=== PATIENT | female | born 2005 | race Caucasian/White ===

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

== ENCOUNTER 2025-02-19 14:17 | Emergency (ER) | payer OTHER, SELFPAY ==
--- NOTE | ~2025-02-19 | US_ITS ---
CLINICAL HISTORY: Upper abdominal pain. Cholecystitis? US abdomen limited Comparison: None provided Findings: The common duct is 3 mm in diameter. The gallbladder is decompressed limiting evaluation. No definite gallstone visualized. No ascites. IMPRESSION: 1. Contracted gallbladder with normal common bile duct. No definite gallstone identified. This document has been electronically signed by: Marcia Li MD on 02/19/2025 20:29:58
--- NOTE | ~2025-02-19 | XR_ITS ---
CLINICAL HISTORY: pain 1 view abdomen Comparison: None provided Findings: No pneumoperitoneum or pneumatosis. No abnormal calcifications. No acute fractures. IMPRESSION: The bowel gas pattern is within normal limits This document has been electronically signed by: Marcia Li MD on 02/19/2025 21:51:28
[2025-02-19 14:44] VITALS: BP 152/99; PULSE 73; RESP 18; TEMP 37; O2SAT 100; BMI 32.1
--- NOTE | 2025-02-19 14:55 | ED_ITS ---
HPI - General Adult General Chief complaint: Abdominal Pain Stated complaint: upper abd pain, vomiting, headache Time Seen by Provider: 02/19/25 21:04 Source: patient Limitations: no limitations History of Present Illness ED Provider: Madelin Samayoa PA-C HPI narrative: 19F with PMHx of obesity, PCOS presents to the ED for evaluation of epigastric pain and headache. Of note patient is on Zepbound 7.5, last dose was yesterday, has lost 55 pounds since November. She states her epigastric pain started last week with associated N/V. Has not gone away just intensifies, worst in the morning. Yesterday while at work she reports N/V, diaphoresis, subjective fever, chills. Denies urinary symptoms. Diarrhea for the last 4 days, fluctuates between diarrhea/constipation with constipation predominance. Headache began yesterday and patient reports it radiates to her neck. Reports recent URI 3 weeks ago, was prescribed amoxicillin. Related Data Previous Rx's ?Medication ?Instructions ?Recorded cefpodoxime 200 mg tablet 200 mg PO BID #20 tabs 12/14 metoclopramide HCl 10 mg tablet 10 mg PO Q6H PRN nause a and 02/19/25 (Reglan) vomiting #12 tabs sucralfate 1 gram tablet (Carafate) 1 g PO BID PRN ind igestion #10 tabs 02/19/25 Allergies Allergy/AdvReac Type Severity Reaction Status Date / Time No Known Allergies Allergy Verified 02/19/25 14:47 Review of Systems 2 Review of Systems: Yes all other systems are reviewed and are negative Constitutional: Constitutional: Reports headache(s) and Reports weight loss ENT: Reports headache(s) Cardiovascular: Cardiovascular: Denies chest pain and Denies dyspnea Respiratory: Respiratory: Denies dyspnea Gastrointestinal: Gastrointestinal: Reports abdominal pain, Reports diarrhea and Reports nausea Genitourinary: Genitourinary: Reports no additional female genitourinary complaints, Reports amenorrhea, Denies dysuria and Denies flank pain Neurologic: Reports headache(s) [facility] Past Medical History Attestation statement: The following information was validated with the patient. Medical History Anxiety Palpitations Secondary amenorrhea BMI (body mass index), pediatric, greater than 99% for age High blood pressure Family History Family History Mother Chronic anxiety Social History Social History Household Members Other:: mother, father Alcohol intake: never Patient Tobacco Use Status: Never used Tobacco Smoked in Last 30 Days: No Use of substances other than those prescribed or required for medical reasons: No Advance Directives: No Advance Directives Information Provided: No Patient : No Sexual orientation: Straight/Heterosexual Physical Exam ED Vital Signs: Vital Signs - 24 hr 02/19/25 14:44 02/19/25 21:05 02/19/25 22:46 Temperature 98.6 F 98.2 F 98.0 F Pulse Rate 73 76 67 Respiratory Rate 18 17 16 Blood Pressure 152/99 H 142/80 H 126/82 Pulse Oximetry 100 100 98 Oxygen Delivery Method Room Air Room Air Room Air 02/19/25 23:03 Temperature 98.0 F Pulse Rate 67 Respiratory Rate 16 Blood Pressure 126/82 Pulse Oximetry 98 Oxygen Delivery Method Room Air BMI result Body Mass Index 32.1 Const General: cooperative, no acute distress, alert and awake Nutritional Appearance: obese Orientation/consciousness: patient oriented x3 Resp Effort & Inspection: normal respiratory effort Auscultation: clear to auscultation bilaterally Cardio Other: Normal peripheral perfusion Rate: regular rate Rhythm: regular rhythm GI Other: Abdomen is soft, obese, nontender no guarding General: Yes no CVA tenderness Back/Spine/Pelvis Back: no CVA tenderness Skin Other: Warm dry no rash Neuro General: patient oriented x3, gait normal, no focal motor deficits and CN's II- XI intact bilaterally Psych Other: cooperative Course Course Course Narrative: RME: 19 yold female on Josh-Bound presents to the ED. Patient did not states upper bilateral abdominal pain radiating to the back. Patient denies any diarrhea. Labs ordered Reevaluation(s) Reevaluation #1: Michelle Samayoa PA-C personally performed the history, physical and assessment of the patient. Sarah RODGERS helped to formulate the documentation Medications Administered Discontinued Medications Generic Name Dose Route Start Last Admin Trade Name Freq PRN Reason Stop Dose Admin Ondansetron HCl 4 mg 02/19/25 21:08 02/19/25 21:16 Ondansetron Odt 4 Mg Tab.Malcom HINOJOSAINGU 02/19/25 21:09 4 mg ONCE ONE Administration Sucralfate 1 gm 02/19/25 21:08 02/19/25 21:16 Sucralfate Oral Suspension 1 Gm/10 Ml Oral.Susp PO 02/19/25 21:09 1 gm ONCE ONE Administration Medical Decision Making Medical Decision Making MDM Narrative: 19F with PMHx of obesity, PCOS presents to the ED for evaluation of epigastric pain and headache. Of note patient is on Zepbound 7.5, last dose was yesterday, has lost 55 pounds since November. She states her epigastric pain started last week with associated N/V. Has not gone away just intensifies, worst in the morning. Yesterday while at work she reports N/V, diaphoresis, subjective fever, chills. Denies urinary symptoms. Diarrhea for the last 4 days, fluctuates between diarrhea/constipation with constipation predominance. Headache began yesterday and patient reports it radiates to her neck. Reports recent URI 3 weeks ago, was prescribed amoxicillin. The following diagnoses were considered: cholecystitis/choledocolithiasis, pancreatitis, bowel obstruction, nephrolithiasis, peptic ulcer disease, appendicitis, ectopic . Patient afebrile, normal white count. Gastroparesis/constipation likely in the setting of GLP-1 therapy. RUQ US wnl. Lipase wnl. No bowel obstruction visualized on KUB. Clinical presentation not consistent with nephrolithiasis, appendicitis, PUD. Patient denies hematochezia/melena. HCG wnl. Labs: No leukocytosis, not anemic, no electrolyte abnormality, LFTs normal, not , urine not infected Ultrasound right upper quadrant:he common duct is 3 mm in diameter. The gallbladder is decompressed limiting evaluation. No definite gallstone visualized. No ascites. IMPRESSION: 1. Contracted gallbladder with normal common bile duct. No definite gallstone identified. KUB:Findings: No pneumoperitoneum or pneumatosis. No abnormal calcifications. No acute fractures. IMPRESSION: The bowel gas pattern is within normal limits I physically looked at the imaging, the patient does have some degree of stool burden Differential Diagnosis Differential Diagnoses: The differential diagnosis associated with the presentation includes See medical decision-making Admission/Observation Consideration of admission/observation: Escalation of care including admission/observation considered Not applicable Lab Data MDM Lab Attestation statement: I reviewed the patient's lab results. 02/19/25 14:58 02/19/25 14:58 Labs: Lab Results 02/19/25 02/19/25 Range/Units 14:58 18:31 WBC 9.1 (4.8-10.8) X10*3/uL RBC 4.90 (4.20-5.50) X10*6/uL Hgb 13.6 (12.0-16.0) g/dl Hct 42.4 (37.0-47.0) % MCV 86.5 (80.0-98.0) fL MCH 27.8 (27.0-33.0) pg MCHC 32.1 (31.0-35.0) g/dl RDW 13.8 (11.0-16.0) % Plt Count 273 (160-400) X10*3/uL MPV 10.9 (9.4-12.3) fL Immature Gran % (Auto) 0.3 (0.0-0.4) % Neut % (Auto) 61.7 (45-73) % Lymph % (Auto) 27.6 (20-40) % [place] % (Auto) 7.6 (2-11) % Eos % (Auto) 2.1 (0-4) % Baso % (Auto) 0.7 (0-2) % Lymph # (Auto) 2.5 (1.2-4.9) X10*3/uL [place] # (Auto) 0.7 (0.1-1.2) X10*3/uL Eos # (Auto) 0.2 (0.0-0.4) X10*3/uL Baso # (Auto) 0.1 (0.0-0.2) X10*3/uL Abs Immat Gran (auto) 0.03 (0.00-0.03) X10*3/uL Absolute Neuts (auto) 5.6 (2.0-8.3) x10*3/uL Absolute Nucleated RBC 0.000 (0.0-0.012) X10*3/uL Nucleated RBC % (auto) 0.0 (0.0-0.2) /100WBC Sodium 143 (135-145) mmol/L Potassium 3.6 (3.3-5.1) mmol/L Chloride 105 (96-108) mmol/L Carbon Dioxide 30 H (22-29) mmol/L Anion Gap 12 (12-20) BUN 6 L (9-16) mg/dL Creatinine 0.76 (0.5-1.4) mg/dL Estim Creat Clear Calc 134.7 Estimated GFR > 60 Random Glucose 84 (60-115) mg/dL Calcium 9.3 (8.4-10.2) mg/dL Magnesium 1.8 (1.6-2.6) mg/dL Total Bilirubin 0.4 (0.0-1.0) mg/dL AST 28 (5-31) U/L ALT 48 H (0-31) U/L Alkaline Phosphatase 52 (39-117) U/L Total Protein 7.6 (6.5-8.0) g/dL Albumin 4.9 (3.5-5.0) g/dL Amylase 43 (28-100) U/L Lipase 22 (8-78) U/L Beta HCG, Quant < 2 mIU/mL Urine Color Dark Yellow Urine Appearance Clear Urine pH 5.5 (5.0-9.0) Ur Specific [place] >= 1.030 H (1.005-1.025) Urine Protein 30 (1+) H (Neg-Trace) mg/dL Urine Glucose (UA) Negative (Negative) mg/dL Urine Ketones Trace (Negative) mg/dL Urine Blood Large (3+) H (Negative) Urine Nitrite Negative (Negative) Ur Leukocyte Esterase Trace H (Negative) Urine RBC >20 H (0-2) /HPF Urine WBC 0-5 (0-5) /HPF Ur Squamous Epith Cells 3-5 (0-2) /HPF Urine Bacteria Trace (None Seen) Hyaline Casts 0-2 (0-2) /LPF Radiology Impression Discussion of test interpretation with radiology: I have reviewed the radiologist's reading. Discharge Plan Discharge Clinical Impression: GERD (gastroesophageal reflux disease), Constipation Patient Disposition: Home, Self-Care Instructions: Constipation (ED), GERD (Gastroesophageal Reflux Disease) (ED), Indigestion (ED) Additional Instructions: All of your screening labs were normal. The ultrasound of your upper abdomen was normal. The x-ray revealed that you are retaining stool. See home care instructions. The weight loss medication that you use is causing your symptoms. Use the Reglan as needed for nausea vomiting Use the Carafate as needed for indigestion For the constipation, use [id number] Colace twice a day, use [id number] MiraLax 2 to 3 times a day, to help maintain regular bowel movements. Once you self regulate, you may be able to decrease the use of the MiraLax, you will have to determine what works for you. Follow up with your primary care provider as needed. Prescriptions: New metoclopramide HCl [Reglan] 10 mg tablet 10 mg PO Q6H PRN (Reason: nausea and vomiting) Qty: 12 0RF sucralfate [Carafate] 1 gram tablet 1 g PO BID PRN (Reason: indigestion) Qty: 10 0RF No Action cefpodoxime 200 mg tablet 200 mg PO BID Qty: 20 0RF Rx Instructions: must administer with a meal/food Stand Alone Forms: Work/School Release Interventions: ED Discharge Assessment Last Done: 02/19/25 23:03 Discharge Date/Time: 02/19/25 23:04 Print Language: Mosotho
[2025-02-19 15:03] LABS: MANUAL DIFF FLAG NO
[2025-02-19 15:04] LABS: Hematocrit 42.4 % (37.0-47.0); Hemoglobin 13.6 g/dl (12.0-16.0); Imm Gran Abs Auto 0.03 X10*3/uL (0.00-0.03); Imm Gran Pct Auto 0.3 % (0.0-0.4); Lymphocytes Absolute Auto 2.5 X10*3/uL (1.2-4.9); Mean Corpuscular HGB Conc 32.1 g/dl (31.0-35.0); Mean Corpuscular Hemoglobin 27.8 pg (27.0-33.0); Mean Corpuscular Volume 86.5 fL (80.0-98.0); NRBC Abs Auto 0.000 X10*3/uL (0.0-0.012); NRBC Pct Auto 0.0 /100WBC (0.0-0.2); Platelet Count 273 X10*3/uL (160-400); Red Blood Count 4.90 X10*6/uL (4.20-5.50); White Blood Count 9.1 X10*3/uL (4.8-10.8)
[2025-02-19 15:30] LABS: Anion Gap 12 (12-20); Aspartate Amino Transferase 28 U/L (5-31); Blood Urea Nitrogen 6 mg/dL (9-16); Calcium 9.3 mg/dL (8.4-10.2); Carbon Dioxide 30 mmol/L (22-29); Chloride 105 mmol/L (96-108); Creatinine Clr Calc Pharmacy 134.7; Estimated Glomerular Filt Rate > 60; Magnesium 1.8 mg/dL (1.6-2.6); Potassium 3.6 mmol/L (3.3-5.1); Sodium 143 mmol/L (135-145); Total Protein 7.6 g/dL (6.5-8.0)
[2025-02-19 15:31] LABS: Albumin Level 4.9 g/dL (3.5-5.0); Alkaline Phosphatase 52 U/L (39-117); Amylase 43 U/L (28-100); Lipase 22 U/L (8-78)
[2025-02-19 15:44] LABS: Alanine Aminotransferase 48 U/L (0-31)
[2025-02-19 18:46] LABS: Appearance Urine Clear; Glucose Urine UA Negative (Negative); PH 5.5 (5.0-9.0); Specific Gravity - Urine >= 1.030 (1.005-1.025); UMIC TRIGGER UACC YES
[2025-02-19 21:05] VITALS: BP 142/80; PULSE 76; RESP 17; TEMP 36.8; O2SAT 100
--- OUTSIDE RECORDS SUMMARY | 2025-02-19 21:05 | XMS_ITS | Encounter Summary ---
Author Organization [facility] Address [address] [place] [address] Care Team Providers Care Ad Compositor Name Role Phone Anisa Mayes MD Primary Care Provider Barbara Ely MD Primary Care Provider [phone] Katerine Le MD Primary Care Provider Reason for Visit * Reason Comments E-prescribe Rx Request Encounter Details Date Type Department Care Team Description 11/30/2020 Refill Pediatrics - [place] [address] [place] [address] [phone] Tati Larsen, [facility] [address] [place], [place] [phone] E-prescribe Rx Request Social History Tobacco Use Types Packs/Day Years Used Date Smoking Tobacco: Never Smokeless Tobacco: Never Comments:mom smokes at work Alcohol Use Standard Drinks/Week Comments No 0 (1 standard drink = 0.6 oz pur e alcohol) Sex Assigned at Date Recorded Not on file Job Start Date Occupation Industry Not on file Not on file Not on file documented as of this encounter Miscellaneous Notes * Telephone Encounter - Tiffanie Bowie - 12/01/2020 12:06 PM EDT When was patients last PE/WCC? 11/03 When is patients next PE/WCC scheduled? Wait listed Anisa J. Sarro RX REQUEST WHEN MED IS ON THE LIST: All of the medications requested were on the CURRENT MEDS list Did you check the Pharmacy information above?: YES Indicate how soon the patient needs the script: YAMILKA Patient would like script to be: send to pharmacy Is the doctor here today?: YES Can the message wait until the doctor returns?: NO Has the patient been told that the prescription will not be filled until the end of the day? NO Anisa Mayes Payor: [employer] FFS / Plan: [employer] / Product Type: MEDICAID RISK documented in this encounter Plan of Treatment Not on file documented as of this encounter Visit Diagnoses Not on filedocumented in this encounter Care Teams Ad Compositor Relationship Specialty Start Date End Date Anisa Mayes MD PCP - General Pediatrics 06/22/19 07/12/21 Barbara Blanchard MD [address] [place] [id number] PCP - General Pediatrics 07/13/21 11/30/23 Katerine Le MD [address] [place] [id number] PCP - General Internal Medicine 12/01/23 documented as of this encounter
--- OUTSIDE RECORDS SUMMARY | 2025-02-19 21:05 | XMS_ITS | Encounter Summary ---
Author Organization [facility] Address [address] [place] [address] Care Team Providers Care Engine Buildup Mechanic Name Role Phone Barbara Blanchard MD Primary Care Provider [phone] Katerine Le MD Primary Care Provider [phone] Reason for Visit * Reason Onset Date Comments refill request 05/03/2022 Encounter Details Date Type Department Care Team Description 05/03/2022 Telephone OBGYN - [address] [id number] Kamron Sykes, [facility] [address] [place] [address] refill request Social History Tobacco Use Types Packs/Day Years Used Date Smoking Tobacco: Never Smokeless Tobacco: Never Alcohol Use Standard Drinks/Week Comments No 0 (1 standard drink = 0.6 oz pur e alcohol) Sex Assigned at Date Recorded Not on file Job Start Date Occupation Industry Not on file Not on file Not on file COVID-19 Exposure Response Date Recorded In the last 10 days, have yo u been in contact with someone who was confirmed or suspected to have Coronavirus/COVID-19? No / Unsure 04/07/2022 3:25 PM EST documented as of this encounter Miscellaneous Notes * Telephone Encounter - Venessa Espinoza - 05/03/2022 2:22 PM EST Patient requedting rx refill for desogestrel-ethinyl estradiol (Apri) 0.15-30 MG-MCG ' to hold heruntil her scheduled BCP follow up on 06/01/22. Please advise documented in this encounter Plan of Treatment Not on file documented as of this encounter Visit Diagnoses Not on filedocumented in this encounter Care Teams Engine Buildup Mechanic Relationship Specialty Start Date End Date Barbara Blanchard MD [address] [place] [id number] PCP - General Pediatrics 07/13/21 11/30/23 Katerine Le MD [address] [place] [id number] PCP - General Internal Medicine 12/01/23 documented as of this encounter
--- OUTSIDE RECORDS SUMMARY | 2025-02-19 21:05 | XMS_ITS | Encounter Summary ---
Author Organization [facility] Address [address] [place] [address] Care Team Providers Care Ice Cream Freezer Helper Name Role Phone Barbara Blanchard MD Primary Care Provider [phone] Katerine Le MD Primary Care Provider [phone] Reason for Visit * Reason Comments E-prescribe Rx Request Encounter Details Date Type Department Care Team Description 06/01/2023 Refill Pediatrics - [address] [address] Barbara Blanchard MD [address] [place] [address] [phone] E-prescribe Rx Request Social History Tobacco Use [...] on filedocumented in this encounter Care Teams Ice Cream Freezer Helper Relationship Specialty Start Date End Date Barbara Blanchard MD [address] [place] [address] [phone] PCP - General Pediatrics 07/13/21 11/30/23 Katerine Le MD [address] [place] [address] PCP - General Internal Medicine 12/01/23 documented as of this encounter
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
--- OUTSIDE RECORDS SUMMARY | 2025-02-19 21:05 | XMS_ITS | Encounter Summary ---
Author Organization [facility] Address [address] [place] [address] Care Team Providers Care Credit Risk Modeler Name Role Phone Jo-Ann Ferrara MD Primary Care Provider Unavailab Horacio Lopez MD Primary Care Provider Anisa Yung MD Primary Care Provider Unavaila Barbara Walton MD Primary Care Provider [phone] Katerine Le MD Primary Care Provider [phone] Encounter Details Date Type Department Care Team Description 01/03/2018 Mobile Plant Operators Report Medical Records [address] [place] [phone] [place] [address] For Social History Tobacco Use Types Packs/Day Years [...] on filedocumented in this encounter Care Teams Credit Risk Modeler Relationship Specialty Start Date End Date Jo-Ann Ferrara MD PCP - General Pediatrics 09/22/17 05/29/19 Horacio Carbajal MD PCP - General Pediatrics 05/30/19 06/21/19 Anisa Mayes MD PCP - General Pediatrics 06/22/19 07/12/21 Barbara Blanchard MD [address] [place] [address] PCP - General Pediatrics 07/13/21 11/30/23 Katerine Le MD [address] [place] [address] PCP - General Internal Medicine 12/01/23 documented as of this encounter
--- OUTSIDE RECORDS SUMMARY | 2025-02-19 21:05 | XMS_ITS | Encounter Summary ---
Author Organization [facility] Address [address] [place] [address] Care Team Providers Care Upper And Bottom Lacer Hand Name Role Phone Peyton Lynn MD Primary Care Provider UnavailJo-Ann Ramirez MD Primary Care Provider UnavailHoracio Comer MD Primary Care Provider Sinaiva Anisa Kidd MD Primary Care Provider Unavaila Barbara [place] MD Primary Care Provider [phone] Katerine Le MD Primary Care Provider [phone] Reason for Visit * Reason Onset Date Comments Rash 12/20/2016 Encounter Details Date Type Department Care Team Description 12/20/2016 Telephone Pediatrics - [address] [address] Lacy Calloway NP Rash Social History Tobacco Use Types Packs/Day Years [...] encounter Miscellaneous Notes * Telephone Encounter - Vidhi Avila L.P.N. - 12/20/2016 4:25 PM EDT [facility] - Telephone Triage Documentation CHIEF COMPLAINT:Spoke to mom, pt has a rash that appears to be little red dots on her neck and sometimes going up the side toward her ear.Very light , comes and goes. Itchy. ? Contact dermititis.Apptmade for tomorrow. PCP: Peyton Lynn LMP/EDC: No current outpatient prescriptions on file. No current facility-administered medications for this visit. Allergies: Review of patient's allergies indicates no known allergies. Patient Active Problem List Diagnosis Code ??? Overweight(278.02) ??? Vision impairment H54.7 ??? Oliva's cyst of knee M71.20 ??? Systolic murmur R01.1 ??? Family circumstance Z63.9 DISPOSITION:Appointment given REFERENCE:Pediatric's Telephone Protocols by Marbin/Kaykay CALLER UNDERSTANDS & AGREES WITH ADVICE:YES * Telephone Encounter - Mady Albert - 12/20/2016 4:08 PM EDT Signs/Symptoms: Pt has a rash on back of neck Duration of symptoms: Past couple of days Temperature: n/a Allergies: Review of patient's allergies indicates no known allergies. Any chronic illnesses: Patient Active Problem List Diagnosis Code ??? Overweight(278.02) ??? Vision impairment H54.7 ??? Oliva's cyst of knee M71.20 ??? Systolic murmur R01.1 ??? Family circumstance Z63.9 Is the child taking any medications: No current outpatient prescriptions on file. No current facility-administered medications for this visit. documented in this encounter Plan of Treatment Not on file documented as of this encounter Visit Diagnoses Not on filedocumented in this encounter Care Teams Upper And Bottom Lacer Hand Relationship Specialty Start Date End Date Peyton Lynn MD PCP - General Pediatrics 04/20/16 09/21/17 Jo-Ann Ferrara MD PCP - General Pediatrics 09/22/17 05/29/19 Horacio Carbajal MD PCP - General Pediatrics 05/30/19 06/21/19 Anisa Mayes MD PCP - General Pediatrics 06/22/19 07/12/21 Barbara Blanchard MD [address] [place] [address] PCP - General Pediatrics 07/13/21 11/30/23 Katerine Le MD [address] [place] [address] PCP - General Internal Medicine 12/01/23 documented as of this encounter
--- OUTSIDE RECORDS SUMMARY | 2025-02-19 21:05 | XMS_ITS | Encounter Summary ---
Author Organization [facility] Address [address] [place] [address] Care Team Providers Care Commercial Announcer Name Role Phone Barbara Blanchard MD Primary Care Provider [phone] Katerine Le MD Primary Care Provider [phone] Encounter Details Date Type Department Care Team Description 10/12/2022 Tempering Machine Operator Report Medical Records [address] [place] [address] Abstract, Provider Social History Tobacco Use Types [...] on filedocumented in this encounter Care Teams Commercial Announcer Relationship Specialty Start Date End Date Barbara Blanchard MD [address] [place] [address] [id number] PCP - General Pediatrics 07/13/21 11/30/23 Katerine Le MD [address] [place] [address] [id number] PCP - General Internal Medicine 12/01/23 documented as of this encounter
--- OUTSIDE RECORDS SUMMARY | 2025-02-19 21:05 | XMS_ITS | Clinical Summary ---
Author Organization [address] Address [address] [place] [phone] Phone Care Team Providers Care Certified Technician Specialist Name Role Phone Katerine Le MD Primary Care Provider [phone] Allergies No known active allergies Medications FLUoxetine (PROzac) 20 mg capsule Take 1 capsule (20 mg total) by mouth 1 (one) time each day in the morning. 4 Active hydrOXYzine HCL (ATARAX) 10 mg tablet Take 1 tablet (10 mg total) by mouth every 6 (six) hours if needed for anxiety. 3 Active tirzepatide, weight loss, (Zepbound) 7.5 mg/0.5 mL injectionIndicat ions:Class 3 severe obesity due to excess calories with body mass index (BMI) of 40.0 to 44.9 in adult, unspecified whether serious comorbidity present (CMS/HCC V24, CMS/HCC V28) Inject 0.5 mL (7.5 mg total) under the skin every 7 (seven) days. 2 mL 5 Active tirzepatide, weight loss, (Zepbound) 7.5 mg/0.5 mL injectionIndicat ions:Class 3 severe obesity due to excess calories with body mass index (BMI) of 40.0 to 44.9 in adult, unspecified whether serious comorbidity present (CMS/HCC V24, CMS/HCC V28) Inject 0.5 mL (7.5 mg total) under the skin every 7 (seven) days. 2 mL 5 02/06/20 25 Discontinu ed(Reorder ) Active Problems Problem Noted Date Diagnosed Date Anxiety and depression 09/05/2024 Class 3 severe obesity due t o excess calories with body mass index (BMI) of 40.0 to 44.9 in adult ([facility] V24, [facility] V28) 09/05/2024 Class 3 severe obesity due t o excess calories with body mass index (BMI) of 40.0 to 44.9 in adult ([facility] V24, 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 consultant 06/28 09/30 - not appreciated 02/01 - [...] requesting referral due to back pain 01/03/18: Anushkajeff lewismaruo, Adolescent idiopathic scoliosis, does not require treatment [...] Encounters Date Type Department Care Team Description 02/05/2025 2:00 PM EDT Nutrition Bariatric Surgery - [address] [address] Niki Campbell, AZAEL Class 2 obesity without serious comorbidity with body mass index (BMI) of 36.0 to 36.9 in adult, unspecified obesity type (Primary Dx) 02/05/2025 Telephone Bariatric Surgery [address] [address] Arnulfo Kelly MD 01/08/2025 Telephone Bariatric Surgery [address] [address] Arnulfo Kelly MD from Last 3 Months Immunizations Immunization Administration Dates Next Due DTaP (Infanrix) 6wks to less than 7yo 2009 DTaP / Hib 11/14/2006 FXoR-XLL-CCU (Pentacel) 2mo to less than 5yo 2005,2005,2005 RDjZ-BhdS-XHD (Pediarix) 6 w ks to less than [...] than 19 yo 07/30/2022 Meningococcal MCV4P 10/13/2017 [email or web address] SARS-CoV-2 COVID-19, mRNA, LNP-S, preservative free 05/23/2021,12/27/2020 [...] 2017 DX:Scoliosis; CO MMENT: was diagnosed at [facility] Family History Medical History Relation Name Comments Other: Enlarged Heart Maternal Grandfather ?genetic Other: lactose intol Maternal Grandfather Alcohol/Drug Mother Breast cancer Mother's side Allergies Other 1 MATERNAL SIDE Asthma Other 2 MATERNAL SIDE Other cancer Other 3 MATERNAL SIDE Other: HEART Other 4 MATERNAL SIDE- Maternal great uncle -40s and maternal great aunt [place] -40s Other: PULMONARY Other 5 MATERNAL SI [...] History Growth Chart Information Age Height Weight Sujenm-wts-wyxu th Percentile BMI Percentile Head Circum Head Circum Percentile Date 19 years 93.9 kg (207 lb) 2024 19 years 161.3 cm (5' 3.5 ) [...] (127 lb 12.8 oz) 96.72%* 2016 * [facility] (Girls, 2-20 Years) Last Filed Vital Signs Vital Sign Reading Time Taken Comments Blood Pressure 125/75 11/08/2024 3:09 PM EDT Pulse 93 11/08/2024 3:09 PM EDT Temperature 36.6 C (97.8 F) 11/08/2024 3:09 PM EDT Respiratory Rate - - Oxygen Saturation - - Inhaled Oxygen Concentration - - Weight 93.9 kg (207 lb) 02/05/2025 2:08 PM EDT Height 161.3 cm (5' 3.5 ) 11/08/2024 3:09 PM EDT Body Mass Index 36.09 11/08/2024 3:09 PM EDT Plan of Treatment Upcoming Encounters Date Type Department Care Team (Late st Contact Info) Description 03/26/2025 8:30 AM EST Office Visit Bariatric Surgery - [address] [address] Arnulfo Kelly MD [address] [place] [phone] 05/13/2025 8:30 AM EST Nutrition Bariatric Surgery - [address] [address] Niki Campbell, RD [address] [facility] [address] [place] [address] 09/10/2025 3:00 PM EDT [facility] [address] [place] [address] Katerine Le MD [address] [place] [address] Health Maintenance Due Date Last Done Comments Depression Screening 05/16/2024 08/03/2023 COVID-19 Vaccine (2024- season) 2025 05/23/2021, 12/27/2020 Influenza Vaccine (#1) 2025 2, 06/12/2010, 2009, Additional history exists Meningococcal B Vaccine (1 of 2 - Standard) 05/16/2025 Postponed from 2021 (Patient Refused) Annual Well Child Visit (3-21 years old) 09/05/2025 09/05/2024, 09/05/2024, 08/03/2023, Additional history exists Social Influencers of Health Screening 09/05/2025 09/05/2024 Gonorrhea/Chlamydia Screening 09/06/2025 09/06/2024, 01/02/2024 DTaP,Tdap,and Td Vaccines (7 - Td or Tdap) 10/14/2027 10/13/2017, 2009, 11/14/2006, Additional history exists RSV Immunization Adult Patients (1 - 1-dose 75+ series) 2080 Hepatitis B Vaccines Completed 2005, 2005, 2005, Additional history exists Pneumococcal Vaccine: Pediatrics (0 to 5 Years) and At-Risk Patients (6 to 49 Years) Completed 2006, 2005, 2005, Additional history exists HIB Vaccines Completed 11/14/2006, 11/14, 2005, Additional history exists Hepatitis A Vaccines Completed 03/28/2008, 11/15/19 07 IPV Vaccines Completed 2009, 2005, 2005, Additional history exists MMR Vaccines Completed [...] Final Result [facility] [address] [place] [address], [place] [phone] * Hepatitis panel, acute with reflex to confirmation (09/06/2024 9:41 AM EDT) Pathologist [facility] Hepatitis B Surface Ag Negative Negative LAB [...] Final Result [facility] [address] [place] [address], [place] [phone] * Chlamydia trachomatis and Neisseria gonorrhoeae molecular [...] MICROBIOLOGY - GENERAL ORDERABLES Final Result [facility] [address] [place] [address], [place] [phone] * Depression Screening (08/03/2023) [facility] Depression Screening abstracted Historical Provider HEALTH MAINTENANCE Final Result from Last 3 Months or Most Recently Relevant to Health Maintenance Insurance [facility] [employer] Care Teams Certified Technician Specialist Relationship Specialty Start Date End Date Katerine Le MD [address] [place] [address] PCP - General 12/01/23
--- OUTSIDE RECORDS SUMMARY | 2025-02-19 21:05 | XMS_ITS | Encounter Summary ---
Author Organization [facility] Address [address] [place] [address] Care Team Providers Care Lumber Cutter Name Role Phone Peyton [place] MD Primary Care Provider Juma Ba, Pcp Primary Care Provider Peyton Cobian MD Primary Care Provider UnavailJo-Ann Ramirez MD Primary Care Provider UnavailHoracio Comer MD Primary Care Provider Anisa Yung MD Primary Care Provider Unavaila Barbara [place] MD Primary Care Provider [phone] Katerine Le MD Primary Care Provider [phone] Encounter Details Date Type Department Care Team Description 2005 [facility] Medical Records [address] [place] [address] Abstract, Provider Social History Tobacco Use Types [...] on filedocumented in this encounter Care Teams Lumber Cutter Relationship Specialty Start Date End Date Peyton [place] MD PCP - General 05 08/24/15 [facility], Pcp PCP - General Internal Medicine 08/25/15 04/19/16 Peyton [place] MD PCP - General Pediatrics 04/20/16 09/21/17 Jo-Ann Ferrara MD PCP - General Pediatrics 09/22/17 05/29/19 Horacio Carbajal MD PCP - General Pediatrics 05/30/19 06/21/19 Anisa Mayes MD PCP - General Pediatrics 06/22/19 07/12/21 Barbara Blanchard MD [address] [place] [address] [phone] PCP - General Pediatrics 07/13/21 11/30/23 Katerine Le MD [address] [place] [phone] PCP - General Internal Medicine 12/01/23 documented as of this encounter
--- OUTSIDE RECORDS SUMMARY | 2025-02-19 21:05 | XMS_ITS | Encounter Summary ---
Author Organization [facility] Address [address] [place] [address] Care Team Providers Care Art Preparator Name Role Phone Peyton [place] MD Primary Care Provider Juma Ba, Pcp Primary Care Provider Peyton Cobian MD Primary Care Provider UnavailJo-Ann Ramirez MD Primary Care Provider UnavailHoracio Comer MD Primary Care Provider Anisa Yung MD Primary Care Provider Unavaila Barbara [place] MD Primary Care Provider [phone] Katerine Le MD Primary Care Provider [phone] Encounter Details Date Type Department Care Team Description 07/29/2013 Night Triage Doc Medical Records [address] [place] [address] Abstract, Provider Social History Tobacco Use Types [...] on filedocumented in this encounter Care Teams Art Preparator Relationship Specialty Start Date End Date Peyton [place] MD PCP - General 05 08/24/15 Birgit, Pcp PCP - General Internal Medicine 08/25/15 04/19/16 Peyton Lynn MD PCP - General Pediatrics 04/20/16 09/21/17 Jo-Ann Ferrara MD PCP - General Pediatrics 09/22/17 05/29/19 Horacio Carbajal MD PCP - General Pediatrics 05/30/19 06/21/19 Anisa Mayes MD PCP - General Pediatrics 06/22/19 07/12/21 Barbara Blanchard MD [address] [place] [id number] PCP - General Pediatrics 07/13/21 11/30/23 Katerine Le MD [address] [place] [address] PCP - General Internal Medicine 12/01/23 documented as of this encounter
--- OUTSIDE RECORDS SUMMARY | 2025-02-19 21:05 | XMS_ITS | Encounter Summary ---
Author Organization [facility] Address [address] [place] [address] Care Team Providers Care Typing Element Machine Operator Name Role Phone Jo-Ann Ferrara MD Primary Care Provider Unavailab Horacio Lopez MD Primary Care Provider Anisa Yung MD Primary Care Provider UnavailBarbara Garibay MD Primary Care Provider [phone] Katerine Le MD Primary Care Provider [phone] Encounter Details Date Type Department Care Team Description 12/18/2017 Release of Information Medical Records [address] [place] [address] Abstract, Provider Social History Tobacco Use Types [...] on filedocumented in this encounter Care Teams Typing Element Machine Operator Relationship Specialty Start Date End Date Jo-Ann Ferrara MD PCP - General Pediatrics 09/22/17 05/29/19 Horacio Carbajal MD PCP - General Pediatrics 05/30/19 06/21/19 Anisa Mayes MD PCP - General Pediatrics 06/22/19 07/12/21 Barbara Blanchard MD [address] [place] [address] PCP - General Pediatrics 07/13/21 11/30/23 Katerine Le MD [address] [place] [phone] PCP - General Internal Medicine 12/01/23 documented as of this encounter
--- OUTSIDE RECORDS SUMMARY | 2025-02-19 21:05 | XMS_ITS | Encounter Summary ---
Author Organization [facility] Address [address] [place] [address] Care Team Providers Care Consumer Sales Representative Name Role Phone Peyton [place] MD Primary Care Provider Juma Ba, Pcp Primary Care Provider Peyton Cobian MD Primary Care Provider UnavailJo-Ann Ramirez MD Primary Care Provider UnavailHoracio Comer MD Primary Care Provider Anisa Yung MD Primary Care Provider Unavaila Barbara [place] MD Primary Care Provider [phone] Katerine Le MD Primary Care Provider [phone] Reason for Visit * Reason Onset Date Comments DCF 09/14/2012 Encounter Details Date Type Department Care Team Description 09/14/2012 Telephone Pediatrics - [address] [address] Peyton [place] MD [facility] Social History Tobacco Use Types Packs/Day Years [...] encounter Miscellaneous Notes * Telephone Encounter - María Elena Flores R.N. - 09/14/2012 9:39 AM EDT Information on last pe given-keke * Telephone Encounter - Savi Bell - 09/14/2012 8:37 AM EDT Name and title of caller: Latasah [phone] : 2005 Age: 7 yr. Is this an active 51A case: Yes. Case is currently active. Message forwarded to nurse to provide information. Message forwarded to nurse for follow up documented in this encounter Plan of Treatment Not on file documented as of this encounter Visit Diagnoses Not on filedocumented in this encounter Care Teams Consumer Sales Representative Relationship Specialty Start Date End Date Peyton [place] MD PCP - General 05 08/24/15 [facility], Pcp PCP - General Internal Medicine 08/25/15 04/19/16 Peyton [place] MD PCP - General Pediatrics 04/20/16 09/21/17 Jo-Ann Ferrara MD PCP - General Pediatrics 09/22/17 05/29/19 Horacio Carbajal MD PCP - General Pediatrics 05/30/19 06/21/19 Anisa Mayes MD PCP - General Pediatrics 06/22/19 07/12/21 Barbara Blanchard MD [address] [place] [phone] PCP - General Pediatrics 07/13/21 11/30/23 Katerine Le MD [address] [place] [phone] PCP - General Internal Medicine 12/01/23 documented as of this encounter
[2025-02-19] MEDS: Sucralfate Oral Suspension 1 GM/10 ML ORAL.SUSP PO (21:16)
[2025-02-19 22:46] VITALS: BP 126/82; PULSE 67; RESP 16; TEMP 36.7; O2SAT 98
[2025-02-19 23:03] VITALS: BP 126/82; PULSE 67; RESP 16; TEMP 36.7; O2SAT 98
== END 2025-02-19 23:04 | disposition home or self-care (01) ==
PROVIDERS: Emergency Provider Emergency Medicine; PCP Internal Medicine
DX: K21.9 Gastro-esophageal reflux disease without esophagitis (principal); K59.00 Constipation, unspecified; R51.9 Headache, unspecified; R11.2 Nausea with vomiting, unspecified; Z79.899 Other long term (current) drug therapy; Z79.85 Long-term (current) use of injectable non-insulin antidiabetic drugs
CPT/HCPCS: 36415; 74018; 76705; 80053; 81001; 82150; 83690; 83735; 84702; 85025; 99284

== ENCOUNTER → 2025-02-19 17:53 | Outpatient (BNV) | payer OTHER, SELFPAY | PROVIDERS: PCP Internal Medicine; Visit Provider Student in an Organized Health Care Education/Training Program | DX: R10.11 Right upper quadrant pain (principal); R10.12 Left upper quadrant pain; K59.00 Constipation, unspecified | CPT/HCPCS: 74018; 76705 ==

== ENCOUNTER 2025-02-25 10:02 | Emergency (ER) | payer OTHER, SELFPAY ==
--- NOTE | 2025-02-25 10:03 | ECG_ITS ---
Test Reason : CP Blood Pressure : */* mmHG Vent. Rate : 69 BPM Atrial Rate : 69 BPM P-R Int : 184 ms QRS Dur : 90 ms QT Int : 372 ms P-R-T Axes : 27 -5 -7 degrees QTcB Int : 398 ms Sinus rhythm with marked sinus arrhythmia Cannot rule out Anterior infarct , age undetermined Abnormal ECG When compared with ECG of 06-Oct-2021 12:55, No significant change was found Referred By: Generic ED Physician Electronically Signed By: Shalom Dave
[2025-02-25 10:11] VITALS: BP 123/80; BP 138/93; PULSE 70; PULSE 79; RESP 16; TEMP 36.9; O2SAT 100; O2SAT 98; BMI 33.3
--- NOTE | 2025-02-25 10:20 | PC.NURSE ---
pt biba - represents to the ED after being evaluated x last week. pt reports constant bilateral upper quadrant abd pain radiating into center of chest w/ associated nausea/vomiting/diarrhea x 1 week. pt reports sx worsened x this am where vomit displayed bright red blood. not on blood thinners. previously dizzy/lightheaded but those sx subsided. on zepbound for weight loss. upon ED arrival - pt a&ox4. vss and up to date. nsr on the reverser. labs obtained/sent to lab by [facility]. ekg performed. 20gIV in the left AC via EMS - remains patent/intact. pt otherwise on RA w/o difficulty - no sob/wob noted. respirations even/unlabored. plan of care ongoing. call toledo placed within reach.
[2025-02-25 10:29] LABS: MANUAL DIFF FLAG NO
[2025-02-25 10:31] LABS: Hematocrit 43.8 % (37.0-47.0); Hemoglobin 13.9 g/dl (12.0-16.0); Imm Gran Abs Auto 0.02 X10*3/uL (0.00-0.03); Imm Gran Pct Auto 0.3 % (0.0-0.4); Lymphocytes Absolute Auto 1.6 X10*3/uL (1.2-4.9); Mean Corpuscular HGB Conc 31.7 g/dl (31.0-35.0); Mean Corpuscular Hemoglobin 27.7 pg (27.0-33.0); Mean Corpuscular Volume 87.3 fL (80.0-98.0); NRBC Abs Auto 0.000 X10*3/uL (0.0-0.012); NRBC Pct Auto 0.0 /100WBC (0.0-0.2); Platelet Count 254 X10*3/uL (160-400); Red Blood Count 5.02 X10*6/uL (4.20-5.50); White Blood Count 6.4 X10*3/uL (4.8-10.8)
--- OUTSIDE RECORDS SUMMARY | 2025-02-25 10:41 | XMS_ITS | Clinical Summary ---
Author Organization [facility] [address] [place] [address] Care Team Providers Care Tube Backer Name Role Phone Katerine Le MD Primary Care Provider [phone] Allergies No known active allergies Medications Zepbound 7.5 mg/0.5 mL pen injector Inject 7.5 mg under the skin. 02/06/2025 Active Active Problems No known active problems Encounters Date Type Department Care Team Description 02/07/2025 4:30 PM EDT Consult [address] [address] Niki James PA Acute right-sided thoracic back pain (Primary Dx); Adolescent idiopathic scoliosis, unspecified spinal region; Adolescent idiopathic scoliosis of thoracic region 02/07/2025 4:15 PM EDT - 02/07/2025 11:59 PM EDT Hospital Encounter [address] [address] Adolescent idiopathic scoliosis, unspecified spinal region Discharge Disposition: Discharged to Home or Self Care (Routine Discharge) from Last 3 Months Social History Tobacco Use Types Packs/Day Years Used Date Smoking Tobacco: Never Smokeless Tobacco: Never Tobacco Cessation:Counseling Given: Not Answered Comments Unknown Sex and Gender Information Value Date Recorded Sex Assigned at Female 02/22/2022 9:57 PM EDT Legal Sex Female 9:57 PM EDT Gender Identity Not on file Sexual Orientation Not on file Last Filed Vital Signs Vital Sign Reading Time Taken Comments Blood Pressure - - Pulse - - Temperature - - Respiratory Rate - - Oxygen Saturation - - Inhaled Oxygen Concentration - - Weight 92.9 kg (204 lb 12.9 oz) 02/07/2025 5:43 PM EDT Height 161.7 cm (5' 3.66 ) 02/07/2025 5:43 PM ED T Body Mass Index 35.53 02/07/2025 5:43 PM EDT Plan of Treatment Not on file Procedures Procedure Name Priority Date/Time Associated Diagnosis Comments XR ENTIRE SPINE 2 OR 3 VW Routine 02/07/2025 4:47 PM EDT Adolescent idiopathic scoliosis, unspecified spinal region from Last 3 Months Results * XR entire spine 2 or 3 views (02/07/2025 4:47 PM EDT) Anatomical Region Laterality Modality Spine Digital Radiogra phy Niki FRANCO IMG XR PROCEDURES Final Result from Last 3 Months Insurance [facility] Care Teams Tube Backer Relationship Specialty Start Date End Date Katerine Le MD [address] [place] [id number] PCP - General Internal Medicine 01/25/25
--- OUTSIDE RECORDS SUMMARY | 2025-02-25 10:41 | XMS_ITS | Clinical Summary ---
Author Organization [address] Address [address] [place] [phone] Phone Care Team Providers Care Director Of Provider Relations Name Role Phone Katerine Le MD Primary Care Provider [phone] Allergies No known active allergies Medications FLUoxetine [...] (BMI) of 40.0 to 44.9 in adult ([facility] V24, [facility] V28) 09/05/2024 Class 3 severe obesity due t o excess calories with body mass index (BMI) of 40.0 to 44.9 in adult ([facility] V24, [facility] V28) 09/05/2024 Family history of breast cancer 09/05/2024 Family history of uterine cancer 09/05/2024 Overweight 04/28/2024 Systolic murmur 04/28/2024 Overview (04/28/2024): 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 09/30 - not appreciated 02/01 - [...] referral due to back pain 01/03/18: Anushkajeff lewismauro, Adolescent idiopathic scoliosis, does not require treatment [...] 2:00 PM EDT Nutrition Bariatric Surgery - [address] [phone] Niki Campbell, AZAEL Class 2 obesity without serious comorbidity with body mass index (BMI) of 36.0 to 36.9 in adult, unspecified obesity type (Primary Dx) 02/05/2025 Telephone Bariatric Surgery [address] [phone] Arnulfo Kelly MD 01/08/2025 Telephone Bariatric Surgery [address] [phone] Arnulfo Kelly MD from Last 3 Months Immunizations Immunization Administration Dates Next Due DTaP (Infanrix) 6wks to less than 7yo 2009 DTaP / Hib 11/14/2006 [id number] (Pentacel) 2mo to less than 5yo 2005,2005,2005 [id number] (Pediarix) 6 w ks to less than [...] than 19 yo 07/30/2022 Meningococcal MCV4P 10/13/2017 [employer] SARS-CoV-2 COVID-19, mRNA, LNP-S, preservative free 05/23/2021,12/27/2020 [...] 2017 DX:Scoliosis; CO MMENT: was diagnosed at [facility] Family History Medical History Relation Name Comments Other: Enlarged Heart Maternal Grandfather ?genetic Other: lactose intol Maternal Grandfather Alcohol/Drug Mother Breast cancer Mother's side Allergies Other 1 MATERNAL SIDE Asthma Other 2 MATERNAL SIDE Other cancer Other 3 MATERNAL SIDE Other: HEART Other 4 MATERNAL SIDE- Maternal great uncle -40s and maternal great aunt [place] -40s Other: PULMONARY Other 5 MATERNAL SI [...] History Growth Chart Information Age Height Weight Pptbrh-lyv-iorq th Percentile BMI Percentile Head Circum Head [...] (127 lb 12.8 oz) 96.72%* 2016 * [facility] (Girls, 2-20 Years) Last Filed Vital Signs [...] AM EST Office Visit Bariatric Surgery - [address] [phone] Arnulfo Kelly MD [address] [place] [phone] 05/13/2025 8:30 AM EST Nutrition Bariatric Surgery - [address] [phone] Niki Campbell, RD [address] [facility] [address] [place] [address] 09/10/2025 3:00 PM EDT Office Visit Adult Medicine [facility] [address] [place] [phone] Katerine Le MD [address] [place] [address] Health Maintenance Due Date Last Done Comments [...] LAB CHEMISTRY METHOD 09/06/2024 3:19 PM EDT [facility] Blood Venous blood specimen / Unknown Venipuncture / Unknown 09/06/2024 9:41 AM EDT 09/06/2024 9:41 AM EDT Narrative [facility] - 09/06/2024 3:19 PM EDT [...] Le MD LAB BLOOD ORDERABLES Final Result [facility] [address] [place] [address], [place] [phone] * Hepatitis panel, acute with reflex to confirmation (09/06/2024 9:41 AM EDT) Pathologist [facility] Hepatitis B Surface Ag Negative Negative LAB CHEMISTRY METHOD 09/06/2024 3:20 PM EDT [facility] Hepatitis A Antibody IgM Negative Negative LAB CHEMISTRY METHOD 09/06/2024 3:20 PM EDT [facility] Hep B Core IgM Negative Negative LAB CHEMISTRY METHOD 09/06/2024 3:20 PM EDT [facility] Hepatitis C Antibody Negative Negative LAB CHEMISTRY METHOD 09/06/2024 3:20 PM EDT [facility] Blood Venous blood specimen / Unknown Venipuncture / Unknown 09/06/2024 9:41 AM EDT 09/06/2024 9:41 AM EDT Katerine Le MD LAB BLOOD ORDERABLES Final Result [facility] [address] [place] [address], [place] [phone] * Chlamydia trachomatis and Neisseria gonorrhoeae molecular study (09/06/2024 9:41 AM EDT) Neisseria gonorrhoeae PCR Negative Negative LAB MOLECULAR DIAGNOSTICS METHOD 09/06/2024 3:58 PM EDT [facility] Chlamydia trachomatis PCR Negative Negative LAB MOLECULAR DIAGNOSTICS METHOD 09/06/2024 3:58 PM EDT [facility] Swab Urine specimen obtained by clean catch procedure / Unknown Non-blood Collection / Unknown 09/06/2024 9:41 AM EDT 09/06/2024 9:41 AM EDT Katerine Le MD LAB MICROBIOLOGY - GENERAL ORDERABLES Final Result [facility] [address] [place] [address], [place] [phone] * Depression Screening (08/03/2023) [facility] Depression Screening abstracted Historical Provider HEALTH MAINTENANCE Final Result from Last 3 Months or Most Recently Relevant to Health Maintenance Insurance [facility] [employer] Care Teams Director Of Provider Relations Relationship Specialty Start Date End Date Katerine Le MD [address] [place] [address] PCP - General 12/01/23
[2025-02-25 10:54] LABS: Troponin-I High Sensitivity < 2.7 ng/L (<3.5-17.0)
[2025-02-25 10:55] LABS: Alanine Aminotransferase 59 U/L (0-31); Albumin Level 4.6 g/dL (3.5-5.0); Alkaline Phosphatase 51 U/L (39-117); Anion Gap 12 (12-20); Aspartate Amino Transferase 37 U/L (5-31); Blood Urea Nitrogen 7 mg/dL (9-16); Calcium 9.2 mg/dL (8.4-10.2); Carbon Dioxide 26 mmol/L (22-29); Chloride 109 mmol/L (96-108); Creatinine Clr Calc Pharmacy 149.9; Estimated Glomerular Filt Rate > 60; Lipase 24 U/L (8-78); Magnesium 1.7 mg/dL (1.6-2.6); Potassium 3.8 mmol/L (3.3-5.1); Sodium 143 mmol/L (135-145); Total Protein 7.0 g/dL (6.5-8.0)
--- NOTE | 2025-02-25 11:37 | ED_ITS ---
HPI - General Adult General Chief complaint: Abdominal Pain Stated complaint: chest pain, abd pain Time Seen by Provider: 02/25/25 11:32 Source: patient Mode of arrival: ambulatory Limitations: no limitations History of Present Illness ED Provider: DR. Mancilla HPI narrative: 19-year-old female on zipbound lost about 50 lb since 3 months ago patient was increased from 5 mg to 7.5 mg 2 weeks ago, presented for 2 weeks of epigastric abdominal pain associated with nausea and vomiting, patient was seen in the emergency department last week for upper abdominal pain with nausea and vomiting had unremarkable workup including ultrasound abdomen, patient returned today for severe upper abdominal pain started this morning that was relieved after she vomited the vomit contain vials and streaks of blood, now the pain is better, patient now complain of no nausea, no vomiting. No recent travel, no prolonged immobilization, no lower extremity swelling or tenderness. Related Data Previous Rx's ?Medication ?Instructions ?Recorded cefpodoxime 200 mg tablet 200 mg PO BID #20 tabs 12/14 metoclopramide HCl 10 mg tablet 10 mg PO Q6H PRN nause a and 02/19/25 (Reglan) vomiting #12 tabs sucralfate 1 gram tablet (Carafate) 1 g PO BID PRN ind igestion #10 tabs 02/19/25 omeprazole 40 mg capsule,delayed 40 mg PO DAILY #20 ca ps 02/25/25 release Allergies Allergy/AdvReac Type Severity Reaction Status Date / Time No Known Allergies Allergy Verified 02/25/25 10:11 Review of Systems 2 Review of Systems: All other systems are reviewed and are negative Constitutional: Reports as per HPI and Reports no additional constitutional complaints Eyes: Reports as per HPI and Reports no additional eye complaints Reports system reviewed and no additional complaints, except as documented Cardiovascular: Reports as per HPI and Reports no additional cardiovascular complaints Respiratory: Reports as per HPI and Reports no additional respiratory complaints Gastrointestinal: Reports as per HPI and Reports no additional gastrointestinal complaints Genitourinary: Reports no additional female genitourinary complaints Musculoskeletal: Reports no additional musculoskeletal complaints Skin/Breast: Reports system reviewed and no additional complaints, except as docu Psychiatric: Reports no additional psychiatric complaints Endocrine: Reports no additional endocrine complaints Hematologic/Lymphatic: Reports no additional hematologic/lymphatic complaints Allergic/Immunologic: Reports no additional allergic/immunologic complaints Reports system reviewed and no additional complaints, except as documented and Reports Abnormal speech present [facility] Past Medical History Medical History Anxiety Palpitations Secondary amenorrhea BMI (body mass index), pediatric, greater than 99% for age High blood pressure Family History Family History Mother Chronic anxiety Social History Social History Household Members Other:: mother, father Alcohol intake: never Patient Tobacco Use Status: Never used Tobacco Smoked in Last 30 Days: No Use of substances other than those prescribed or required for medical reasons: No Advance Directives: No Advance Directives Information Provided: No Do you have a plan to hurt others: No Plan Patient : No Sexual orientation: Straight/Heterosexual Physical Exam ED Vital Signs: Vital Signs - 24 hr 02/25/25 10:11 02/25/25 11:59 02/25/25 14:27 Temperature 98.4 F 98.3 F 97.8 F Pulse Rate 79 79 72 Respiratory Rate 16 17 18 Blood Pressure 123/80 113/65 127/60 Pulse Oximetry 100 100 99 Oxygen Delivery Method Room Air Room Air Room Air BMI result Body Mass Index 33.3 Vital signs have been reviewed and appear to be correct. Blood pressure elevated. Heart rate normal. Respiratory rate normal. Temperature normal. Oxygen saturation normal. Appearance: Alert. Oriented X3. No acute distress. Head: Normal external exam. Normocephalic. Atraumatic. No Quintana signs noted. No raccoon eyes noted Eyes: PERRLA. EOMI. Conjunctiva and sclera normal. Eyelids normal. ENT: TM's Normal. Pharynx normal. Uvula midline. Moist mucous membranes. No trismus noted. No drooling noted. No muffled voice noted. Neck: Normal inspection. Neck supple. FROM. No adenopathy. Thyroid Normal. No meningeal signs. No neck mass noted. CVS: Normal heart rate and rhythm. Heart sound normal. No murmurs noted. Pulses normal throughout. Respiratory: No respiratory distress. Painless inspiration. Breath sounds normal. No wheezes/rales/rhonchi noted. Chest nontender. No accessory muscle usage noted or decreased air movement noted. Abdomen: Obese, soft, mild epigastric tenderness, no guarding, no rebound tenderness. Bowel sounds normal in all 4 quadrants. No distention noted. No organomegaly noted. No visible injury noted. Back: No CVA tenderness. Full range of motion noted. Skin: Skin warm and dry. Normal skin color. Normal skin turgor. No rashes/lesions/lacerations noted. Extremities: No lower extremity edema. Extremities exhibit normal range of motion. Extremities nontender. Neuro: Oriented X 3. Cranial nerve exam: II-XII are grossly intact No motor deficit. No sensory deficit. Reflexes normal. Course Reevaluation(s) Reevaluation #1: Patient feels much better, able to tolerate p.o. intake in the emergency department with some improvement of her symptoms, no blood in the vomitus. He is going LFTs slightly elevated at her baseline, D-dimer is unremarkable, cardiac workup is unremarkable. Patient had a recent ultrasound shows no acute gallbladder disease. Discussed with the patient to talk with her bariatric physician maybe to lower dose for zipbound. Time: 16:21 Medications Administered Discontinued Medications Generic Name Dose Route Start Last Admin Trade Name Freq PRN Reason Stop Dose Admin Al Hydroxide/Mg Hydroxide 30 ml 02/25/25 11:39 02/25/25 11:54 Magnesium Hydrox/Alum Hydrox 30 Ml Oral.Susp PO 02/25/25 11:40 30 ml ONCE ONE Administration Famotidine 20 mg 02/25/25 11:39 02/25/25 11:54 Famotidine/Pf 20 Mg/2 Ml Vial IVPUSH 02/25/25 11:40 20 mg ONCE ONE Administration Sucralfate 1 gm 02/25/25 11:39 02/25/25 11:54 Sucralfate Oral Suspension 1 Gm/10 Ml Oral.Susp PO 02/25/25 11:40 1 gm ONCE ONE Administration Medical Decision Making Differential Diagnosis Differential Diagnoses: The differential diagnosis associated with the presentation includes (Pulmonary embolism, ACS (unlikely), gastritis, GERD, gallbladder disease, dehydration, electrolyte derangement, severe anemia.) Admission/Observation Consideration of admission/observation: Escalation of care including admission/observation considered Lab Data MDM Lab Attestation statement: I reviewed the patient's lab results. 02/25/25 10:22 02/25/25 10:22 Labs: Lab Results 10/13/25 10/13/25 Range/Units 10:22 12:30 WBC 6.4 (4.8-10.8) X10*3/uL RBC 5.02 (4.20-5.50) X10*6/uL Hgb 13.9 (12.0-16.0) g/dl Hct 43.8 (37.0-47.0) % MCV 87.3 (80.0-98.0) fL MCH 27.7 (27.0-33.0) pg MCHC 31.7 (31.0-35.0) g/dl RDW 13.7 (11.0-16.0) % Plt Count 254 (160-400) X10*3/uL MPV 10.8 (9.4-12.3) fL Immature Gran % (Auto) 0.3 (0.0-0.4) % Neut % (Auto) 65.5 (45-73) % Lymph % (Auto) 24.4 (20-40) % [place] % (Auto) 7.0 (2-11) % Eos % (Auto) 2.0 (0-4) % Baso % (Auto) 0.8 (0-2) % Lymph # (Auto) 1.6 (1.2-4.9) X10*3/uL [place] # (Auto) 0.5 (0.1-1.2) X10*3/uL Eos # (Auto) 0.1 (0.0-0.4) X10*3/uL Baso # (Auto) 0.1 (0.0-0.2) X10*3/uL Abs Immat Gran (auto) 0.02 (0.00-0.03) X10*3/uL Absolute Neuts (auto) 4.2 (2.0-8.3) x10*3/uL Absolute Nucleated RBC 0.000 (0.0-0.012) X10*3/uL Nucleated RBC % (auto) 0.0 (0.0-0.2) /100WBC D-Dimer High Sensitivty < 150 NG/ML Sodium 143 (135-145) mmol/L Potassium 3.8 (3.3-5.1) mmol/L Chloride 109 H (96-108) mmol/L Carbon Dioxide 26 (22-29) mmol/L Anion Gap 12 (12-20) BUN 7 L (9-16) mg/dL Creatinine 0.72 (0.5-1.4) mg/dL Estim Creat Clear Calc 149.9 Estimated GFR > 60 Random Glucose 106 (60-115) mg/dL Calcium 9.2 (8.4-10.2) mg/dL Magnesium 1.7 (1.6-2.6) mg/dL Total Bilirubin 0.5 (0.0-1.0) mg/dL Direct Bilirubin 0.2 (0.0-0.5) mg/dL AST 37 H (5-31) U/L ALT 59 H (0-31) U/L Alkaline Phosphatase 51 (39-117) U/L Troponin I High Sens < 2.7 (<3.5-17.0) ng/L Total Protein 7.0 (6.5-8.0) g/dL Albumin 4.6 (3.5-5.0) g/dL Lipase 24 (8-78) U/L Beta HCG, Quant 3 mIU/mL Discharge Plan Discharge Clinical Impression: Gastritis, Chest pain due to GERD Patient Disposition: Home, Self-Care Instructions: GERD (Gastroesophageal Reflux Disease) (ED) Prescriptions: New omeprazole 40 mg capsule,delayed release(DR/EC) 40 mg PO DAILY Qty: 20 0RF No Action metoclopramide HCl [Reglan] 10 mg tablet 10 mg PO Q6H PRN (Reason: nausea and vomiting) Qty: 12 0RF sucralfate [Carafate] 1 gram tablet 1 g PO BID PRN (Reason: indigestion) Qty: 10 0RF cefpodoxime 200 mg tablet 200 mg PO BID Qty: 20 0RF Rx Instructions: must administer with a meal/food Referrals: Ktaerine Le MD [Primary Care Provider, Internal Medicine] Print Language: Chinese
[2025-02-25] MEDS: Sucralfate Oral Suspension 1 GM/10 ML ORAL.SUSP PO (11:54)
[2025-02-25] MEDS: Magnesium Hydrox/Alum Hydrox 30 ML ORAL.SUSP PO (11:54)
[2025-02-25 11:59] VITALS: BP 113/65; PULSE 79; RESP 17; TEMP 36.8; O2SAT 100
--- NOTE | 2025-02-25 12:00 | PC.NURSE ---
medication administered per provider order. effectiveness pending.
[2025-02-25 12:43] LABS: D Dimer High Sensitivity < 150 NG/ML
--- NOTE | 2025-02-25 13:44 | PC.NURSE ---
pt provided w/ crackers and water in attempts for PO challenge. effectiveness pending.
[2025-02-25 14:27] VITALS: BP 127/60; PULSE 72; RESP 18; TEMP 36.6; O2SAT 99
[2025-02-25 16:36] VITALS: BP 108/73; PULSE 82; RESP 16; TEMP 36.8; O2SAT 98
== END 2025-02-25 17:06 | disposition home or self-care (01) ==
PROVIDERS: Emergency Provider Emergency Medicine; PCP Internal Medicine
DX: K29.70 Gastritis, unspecified, without bleeding (principal); R07.9 Chest pain, unspecified; R10.9 Unspecified abdominal pain; K21.9 Gastro-esophageal reflux disease without esophagitis; R94.31 Abnormal electrocardiogram [ECG] [EKG]
CPT/HCPCS: 36415; 80053; 82248; 83690; 83735; 84484; 84702; 85025; 85379; 93005; 96374; 99284; 99285; J1308

== ENCOUNTER → 2025-02-25 10:03 | Outpatient (BNV) | payer OTHER, SELFPAY | PROVIDERS: Emergency Provider Emergency Medicine; PCP Internal Medicine; Visit Provider Internal Medicine Cardiovascular Disease | DX: I49.9 Cardiac arrhythmia, unspecified (principal) | CPT/HCPCS: 93010 ==

== ENCOUNTER 2025-03-06 15:21 | Emergency (ER) | payer OTHER, SELFPAY ==
--- NOTE | ~2025-03-06 | XR_ITS ---
CLINICAL HISTORY: pain constipation 1 view abdomen Comparison: 02/19/2025 Findings: No significant bowel distention demonstrated. No significant increased stool noted. No free air. No abnormal calcification. No acute bony abnormalities. Impression: No significant abnormalities. This document has been electronically signed by: Jaylen St MD on 03/06/2025 23:15:12
[2025-03-06 15:36] VITALS: BP 130/100; PULSE 70; O2SAT 100
[2025-03-06 15:37] VITALS: BP 157/78; PULSE 63; RESP 18; TEMP 36.5; O2SAT 95; BMI 33.5
--- NOTE | 2025-03-06 15:38 | ED.GENADULT ---
HPI - General Adult General Chief complaint: Abdominal Pain Stated complaint: Abd pain Time Seen by Provider: 03/06/25 20:16 Source: patient Limitations: no limitations History of Present Illness ED Provider: Madelin Samayoa PA-C HPI narrative: 19-year-old female with a history of morbid obesity, anxiety, palpitations presents with abdominal pain for 1 month. Pain over epigastric region with radiation up to the chest described as a burning sensation that has stabbing at times. Intermittent nausea and vomiting. Patient was taking a GLP-1 injection, she has been off it for 2 weeks secondary to side effects. Associated constipation with this medication. Patient has been seen in the emergency department multiple times for same symptoms, she was prescribed omeprazole, however she still is having symptoms. Related Data Previous Rx's ?Medication ?Instructions ?Recorded cefpodoxime 200 mg tablet 200 mg PO BID #20 tabs 12/14/24 metoclopramide HCl 10 mg tablet 10 mg PO Q6H PRN nausea and 02/19/25 (Reglan) vomiting #12 tabs sucralfate 1 gram tablet (Carafate) 1 g PO BID PRN indigestion #10 tabs 02/19/25 omeprazole 40 mg capsule,delayed 40 mg PO DAILY #20 caps 02/25/25 release sucralfate 1 gram tablet 1 g PO QID PRN dyspepsia #12 tabs 03/06/25 Allergies Allergy/AdvReac Type Severity Reaction Status Date / Time No Known Allergies Allergy Verified 03/06/25 15:41 Review of Systems Review of Systems: Yes all other systems are reviewed and are negative Constitutional: Constitutional: Denies fatigue and Denies fever(s) Cardiovascular: Cardiovascular: Denies chest pain Gastrointestinal: Gastrointestinal: Reports abdominal pain, Reports dyspepsia, Reports nausea and Reports vomiting Endocrine: Endocrine: Denies fatigue PMFSH Past Medical History Attestation statement: The following information was validated with the patient. Medical History Anxiety Palpitations Secondary amenorrhea BMI (body mass index), pediatric, greater than 99% for age High blood pressure Family History Family History Mother Chronic anxiety Social History Social History Household Members Other:: mother, father Alcohol intake: never Patient Tobacco Use Status: Never used Tobacco Smoked in Last 30 Days: No Use of substances other than those prescribed or required for medical reasons: No Advance Directives: No Advance Directives Information Provided: Yes Patient : No Sexual orientation: Straight/Heterosexual Physical Exam ED Vital Signs: Vital Signs - 24 hr 03/06/25 15:37 03/06/25 20:51 03/06/25 23:00 Temperature 97.7 F 98.2 F 98.5 F Pulse Rate 63 88 83 Respiratory Rate 18 18 17 Blood Pressure 157/78 H 124/75 129/84 Pulse Oximetry 95 100 98 Oxygen Delivery Method Room Air Room Air Room Air BMI result Body Mass Index 33.5 Const Other: Alert well-appearing Orientation/consciousness: patient oriented x3 Resp Effort & Inspection: normal respiratory effort Cardio Other: Normal peripheral perfusion GI Other: Abdomen is soft, obese, nontender to deep palpation no guarding Skin Other: Warm dry no rash Neuro General: patient oriented x3, gait normal, no focal motor deficits and CN's II-XI intact bilaterally Psych Other: Cooperative Course Course Course Narrative: This is a Rapid Medical Examination (RME) performed by Sajan Quiros PA-C in triage. Full HPI, ROS, assessment and treatment plan per primary provider in the Main ED. Hx: 19 yo F BIBA for eval of stabbing epigastric abdominal pain radiating to chest intermittently x1 mo. 3rd visit for this so far. one episode of vomiting this morning. ndiscontinued zepbound 2 weeks ago as this may have been contributing to sx, started on omeprazole 3 days ago without improvement. Plan: labs, ekg Medications Administered Discontinued Medications Generic Name Dose Route Start Last Admin Trade Name Freq PRN Reason Stop Dose Admin Acetaminophen 650 mg 03/06/25 16:27 03/06/25 16:29 Acetaminophen 325 Mg Tablet PO 03/06/25 16:28 650 mg ONCE ONE Administration Ondansetron HCl 4 mg 03/06/25 16:27 03/06/25 16:29 Ondansetron Odt 4 Mg Tab.Rapdis TRANSLINGU 03/06/25 16:28 4 mg ONCE ONE Administration Sucralfate 1 gm 03/06/25 23:27 03/06/25 23:35 Sucralfate Oral Suspension 1 Gm/10 Ml Oral.Susp PO 03/06/25 23:28 1 gm ONCE ONE Administration Medical Decision Making Medical Decision Making [facility] Narrative: 19-year-old female with a history of morbid obesity, anxiety, palpitations presents with abdominal pain for 1 month. Pain over epigastric region with radiation up to the chest described as a burning sensation that has stabbing at times. Intermittent nausea and vomiting. Patient was taking a GLP-1 injection, she has been off it for 2 weeks secondary to side effects. Associated constipation with this medication. Patient has been seen in the emergency department multiple times for same symptoms, she was prescribed omeprazole, however she still is having symptoms. Problem: Obesity History: Per patient I have considered the following differential diagnoses: Biliary colic, cholecystitis, GERD, gastritis, peptic ulcer disease, perforated peptic ulcer, constipation Plan: I think the patient's symptoms are multifactorial. She has had multiple assessed items in the ED including an ultrasound of the right upper abdomen which was negative, biliary pathology has been excluded. She was on the GLP- 1 injection, this has numerous side effects which we are all aware of. She has been constipated as a result, she could still be, adding on a KUB. Her symptoms are still consistent with poorly controlled reflux. She has not performed any dietary or behavioral modifications, I will review them with her in place him in her discharge paperwork. I have suggested discontinuing the omeprazole, giving Carafate instead. Doubtful she has a perforated peptic ulcer, she has no coffee-ground emesis, she also has no peritoneal signs on exam, the KUB we will reveal free air. I have explained at length that the remainder of her assessment needs to happen as an outpatient, including gastroenterology consult, with likely endoscopy to rule in the presence of actual GERD. They verbalized understanding. I have independently reviewed the following tests: Labs: No leukocytosis, not anemic, no electrolyte abnormality, liver function tests normal, troponin negative, not , urine not infected KUB:Findings: No significant bowel distention demonstrated. No significant increased stool noted. No free air. No abnormal calcification. No acute bony abnormalities. Impression: No significant abnormalities. Differential Diagnosis Differential Diagnoses: The differential diagnosis associated with the presentation includes See medical decision-making Admission/Observation Consideration of admission/observation: Escalation of care including admission/observation considered Not applicable Lab Data [facility] Lab Attestation statement: I reviewed the patient's lab results. 03/06/25 15:50 03/06/25 15:50 Labs: Lab Results 03/06/25 03/06/25 Range/Units 15:50 18:15 WBC 7.3 (4.8-10.8) X10*3/uL RBC 4.78 (4.20-5.50) X10*6/uL Hgb 13.1 (12.0-16.0) g/dl Hct 40.7 (37.0-47.0) % MCV 85.1 (80.0-98.0) fL MCH 27.4 (27.0-33.0) pg MCHC 32.2 (31.0-35.0) g/dl RDW 13.2 (11.0-16.0) % Plt Count 250 (160-400) X10*3/uL MPV 10.8 (9.4-12.3) fL Immature Gran % (Auto) 0.3 (0.0-0.4) % Neut % (Auto) 66.7 (45-73) % Lymph % (Auto) 25.2 (20-40) % [place] % (Auto) 6.6 (2-11) % Eos % (Auto) 0.8 (0-4) % Baso % (Auto) 0.4 (0-2) % Lymph # (Auto) 1.8 (1.2-4.9) X10*3/uL [place] # (Auto) 0.5 (0.1-1.2) X10*3/uL Eos # (Auto) 0.1 (0.0-0.4) X10*3/uL Baso # (Auto) 0.0 (0.0-0.2) X10*3/uL Abs Immat Gran (auto) 0.02 (0.00-0.03) X10*3/uL Absolute Neuts (auto) 4.9 (2.0-8.3) x10*3/uL Absolute Nucleated RBC 0.000 (0.0-0.012) X10*3/uL Nucleated RBC % (auto) 0.0 (0.0-0.2) /100WBC Sodium 142 (135-145) mmol/L Potassium 3.4 (3.3-5.1) mmol/L Chloride 107 (96-108) mmol/L Carbon Dioxide 26 (22-29) mmol/L Anion Gap 12 (12-20) BUN 7 L (9-16) mg/dL Creatinine 0.73 (0.5-1.4) mg/dL Estim Creat Clear Calc 133.5 Estimated GFR > 60 Random Glucose 99 (60-115) mg/dL Calcium 9.2 (8.4-10.2) mg/dL Magnesium 1.6 (1.6-2.6) mg/dL Total Bilirubin 0.4 (0.0-1.0) mg/dL AST 23 (5-31) U/L ALT 26 (0-31) U/L Alkaline Phosphatase 54 (39-117) U/L Troponin I High Sens < 2.7 (<3.5-17.0) ng/L Total Protein 7.2 (6.5-8.0) g/dL Albumin 4.6 (3.5-5.0) g/dL Lipase 32 (8-78) U/L Beta HCG, Quant < 2 mIU/mL Urine Color Yellow Urine Appearance Clear Urine pH 7.5 (5.0-9.0) Ur Specific [place] 1.015 (1.005-1.025) Urine Protein Negative (Neg-Trace) mg/dL Urine Glucose (UA) Negative (Negative) mg/dL Urine Ketones 40 (Negative) mg/dL Urine Blood Negative (Negative) Urine Nitrite Negative (Negative) Ur Leukocyte Esterase Small (1+) H (Negative) Urine RBC 0-2 (0-2) /HPF Urine WBC 0-5 (0-5) /HPF Ur Squamous Epith Cells 3-5 (0-2) /HPF Urine Bacteria None Seen (None Seen) Hyaline Casts 0-2 (0-2) /LPF Radiology Impression Discussion of test interpretation with radiology: I have reviewed the radiologist's reading. Discharge Plan Discharge Clinical Impression: Epigastric abdominal pain, Gastroesophageal reflux disease Patient Disposition: Home, Self-Care Instructions: Diet for Stomach Ulcers and Gastritis (ED), GERD (Gastroesophageal Reflux Disease) (ED), Epigastric Pain (ED) Additional Instructions: All of your screening labs were normal including a cardiac enzyme. There were no concerning changes on your EKG. The x-ray revealed some degree of stool burden, you were not overtly constipated. This could be contributing to your upper abdominal discomfort. I have provided you with information to read about GERD and gastritis, I have included dietary recommendations as well. In regard to acid reflux, some common food triggers are anything spicy, acidic, fatty greasy, carbonation, alcohol, caffeine. Eating smaller more frequent meals throughout the day can help deter symptoms. Do not eat 3 hours before bed. Exercise and weight loss are also instrumental in helping to prevent symptoms. In regard to the constipation, you can use cymg-byf-drpswnl Colace daily this is a stool softener. With bvrj-wyv-rucdmwd MiraLax, 1 to 2 times a day to help maintain regularity. I would follow up with primary care to have discussion about the need for a gastroenterology consult. Endoscopy would be the study of choice to determine if you truly have acid reflux and/or other pathology. Prescriptions: New sucralfate 1 gram tablet 1 g PO QID PRN (Reason: dyspepsia) Qty: 12 0RF No Action metoclopramide HCl [Reglan] 10 mg tablet 10 mg PO Q6H PRN (Reason: nausea and vomiting) Qty: 12 0RF sucralfate [Carafate] 1 gram tablet 1 g PO BID PRN (Reason: indigestion) Qty: 10 0RF cefpodoxime 200 mg tablet 200 mg PO BID Qty: 20 0RF Rx Instructions: must administer with a meal/food omeprazole 40 mg capsule,delayed release(DR/EC) 40 mg PO DAILY Qty: 20 0RF Stand Alone Forms: Work/School Release Interventions: ED Discharge Assessment Last Done: 03/06/25 23:42 Print Language: Bulgarian
--- NOTE | 2025-03-06 15:40 | ECG_ITS ---
Test Reason : cp Blood Pressure : */* mmHG Vent. Rate : 60 BPM Atrial Rate : 60 BPM P-R Int : 160 ms QRS Dur : 90 ms QT Int : 420 ms P-R-T Axes : 36 -4 -13 degrees QTcB Int : 420 ms Normal sinus rhythm Low voltage QRS Cannot rule out Inferior infarct , age undetermined Cannot rule out Anterior infarct (cited on or before 25-Feb-2025) Abnormal ECG When compared with ECG of 25-Feb-2025 10:12, No significant change was found Referred By: Fiona Quiros Electronically Signed By: GAMALIEL DORANTES MD
[2025-03-06 15:54] LABS: MANUAL DIFF FLAG NO
[2025-03-06 15:57] LABS: Hematocrit 40.7 % (37.0-47.0); Hemoglobin 13.1 g/dl (12.0-16.0); Imm Gran Abs Auto 0.02 X10*3/uL (0.00-0.03); Imm Gran Pct Auto 0.3 % (0.0-0.4); Lymphocytes Absolute Auto 1.8 X10*3/uL (1.2-4.9); Mean Corpuscular HGB Conc 32.2 g/dl (31.0-35.0); Mean Corpuscular Hemoglobin 27.4 pg (27.0-33.0); Mean Corpuscular Volume 85.1 fL (80.0-98.0); NRBC Abs Auto 0.000 X10*3/uL (0.0-0.012); NRBC Pct Auto 0.0 /100WBC (0.0-0.2); Platelet Count 250 X10*3/uL (160-400); Red Blood Count 4.78 X10*6/uL (4.20-5.50); White Blood Count 7.3 X10*3/uL (4.8-10.8)
[2025-03-06 16:22] LABS: Troponin-I High Sensitivity < 2.7 ng/L (<3.5-17.0)
[2025-03-06 16:27] LABS: Alanine Aminotransferase 26 U/L (0-31); Albumin Level 4.6 g/dL (3.5-5.0); Alkaline Phosphatase 54 U/L (39-117); Anion Gap 12 (12-20); Aspartate Amino Transferase 23 U/L (5-31); Blood Urea Nitrogen 7 mg/dL (9-16); Calcium 9.2 mg/dL (8.4-10.2); Carbon Dioxide 26 mmol/L (22-29); Chloride 107 mmol/L (96-108); Creatinine Clr Calc Pharmacy 133.5; Estimated Glomerular Filt Rate > 60; Lipase 32 U/L (8-78); Magnesium 1.6 mg/dL (1.6-2.6); Potassium 3.4 mmol/L (3.3-5.1); Sodium 142 mmol/L (135-145); Total Protein 7.2 g/dL (6.5-8.0)
[2025-03-06 18:29] LABS: Appearance Urine Clear; Glucose Urine UA Negative (Negative); PH 7.5 (5.0-9.0); Specific Gravity - Urine 1.015 (1.005-1.025); UMIC TRIGGER UACC YES
[2025-03-06 18:46] LABS: UACC Culture Trigger YES
[2025-03-06 20:51] VITALS: BP 124/75; PULSE 88; RESP 18; TEMP 36.8; O2SAT 100
--- OUTSIDE RECORDS SUMMARY | 2025-03-06 22:44 | XMS_ITS | Encounter Summary ---
Author Organization [facility] Address [address] [place] [address] Care Team Providers Care Paper Products Inspector Name Role Phone Katerine Le MD Primary Care Provider Encounter Details Date Type Department Care Team (Late Contact Info) Description 03/04/2025 Telephone Adult Medicine [facility] [address] [place] [phone] Katerine Le MD [address] [place] [address] Social History Tobacco Use Types Packs/Day Years [...] as of this encounter Plan of Treatment Upcoming Encounters Date Type Department Care Team (Late Contact Info) Description 03/26/2025 8:30 AM EST Office Visit Bariatric Surgery - [address] [place] [phone] Arnulfo Kelly MD [address] [place] [phone] 05/13/2025 8:30 AM EST Nutrition Bariatric Surgery - [place] [address] [employer] [address] [place] [phone] Niki Campbell, AZAEL [address] [facility] [address] [place] [phone] 09/10/2025 3:00 PM EDT Office Visit Adult Medicine [facility] [address] [place] [phone] Katerine Le MD [address] [place] [address] documented as of this encounter Visit Diagnoses Not on filedocumented in this encounter Care Teams Paper Products Inspector Relationship Specialty Start Date End Date Katerine Le MD [address] [place] [address] PCP - General 12/01/23 documented as of this encounter
--- OUTSIDE RECORDS SUMMARY | 2025-03-06 22:44 | XMS_ITS | Clinical Summary ---
Author Organization [address] Address [address] [place] [phone] Phone Care Team Providers Care Boilermaker Fitter Name Role Phone Katerine Le MD Primary [...] (BMI) of 40.0 to 44.9 in adult ([facility] V24, [facility] V28) 09/05/2024 Class 3 severe obesity due t o excess calories with body mass index (BMI) of 40.0 to 44.9 in adult ([facility] V24, [facility] V28) 09/05/2024 Family history of breast cancer 09/05/2024 Family history of uterine cancer 09/05/2024 Overweight 04/28/2024 Systolic murmur 04/28/2024 Overview (04/28/2024): 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 No need for further F/u unless any concerns or issues in the future. Resolved Problems Problem Noted Date Diagnosed Date Resolved Date History of breast cancer 09/05/2024 Encounters Date Type Department Care Team Description 03/04/2025 Telephone [facility] [address] [place] [phone] Katerine Le MD 02/05/2025 2:00 PM EDT Nutrition Bariatric Surgery [address] [phone] Niki Campbell, AZAEL Class 2 obesity without serious comorbidity with body mass index (BMI) of 36.0 to 36.9 in adult, unspecified obesity type (Primary Dx) 02/05/2025 Telephone Bariatric Surgery [address] [phone] Arnulfo Kelly MD 01/08/2025 Telephone Bariatric Surgery [address] [phone] Arnulfo Kelly MD from Last 3 Months Immunizations Immunization Administration Dates Next Due DTaP (Infanrix) 6wks to less than 7yo 2009 DTaP / Hib 11/14/2006 UHoL-CUH-PBD (Pentacel) 2mo to less than 5yo 2005,2005,2005 VHpR-ObeM-WLR (Pediarix) 6 w ks to less than [...] than 19 yo 07/30/2022 Meningococcal MCV4P 10/13/2017 Favor SARS-CoV-2 COVID-19, mRNA, LNP-S, preservative free 05/23/2021,12/27/2020 [...] COMMENT: DCF called for update 09/14/12 Scoliosis 2018 DX:Scoliosis; CO MMENT: was diagnosed at [place]' Family History Medical History Relation Name Comments Other: Enlarged Heart Maternal Grandfather ?genetic Other: lactose intol Maternal Grandfather Alcohol/Drug Mother Breast cancer Mother's side Allergies Other 1 MATERNAL SIDE Asthma Other 2 MATERNAL SIDE Other cancer Other 3 MATERNAL SIDE Other: HEART Other 4 MATERNAL SIDE- Maternal great uncle -40s and maternal great aunt [place] -40s Other: PULMONARY Other 5 MATERNAL SI [...] History Growth Chart Information Age Height Weight Udnpvv-djq-ystv th Percentile BMI Percentile Head Circum Head [...] AM EST Office Visit Bariatric Surgery - [address] [place] [phone] Arnulfo Kelly MD [address] [place] [phone] 05/13/2025 8:30 AM EST Nutrition Bariatric Surgery - [place] [address] [facility] [address] [place] [phone] Niki Campbell, RD 175 [facility] [address] [place] [phone] 09/10/2025 3:00 PM EDT Office Visit [facility] [address] [place] [phone] Katerine Le MD [address] [place] [address] Health Maintenance Due Date Last Done Comments Depression Screening 05/16/2024 08/03/2023 COVID-19 Vaccine ( season) 2025 05/23/2021, 12/27/2020 Influenza Vaccine (#1) [...] LAB CHEMISTRY METHOD 09/06/2024 3:19 PM EDT [facility] Blood Venous blood specimen / Unknown Venipuncture / Unknown 09/06/2024 9:41 AM EDT 09/06/2024 9:41 AM EDT Narrative [facility] - 09/06/2024 3:19 PM EDT This [...] BLOOD ORDERABLES Final Result Performing Organization Address [facility]/ZIP Co de Phone Number [facility] [address] [place] [address], [place] [phone] * Hepatitis panel, acute with reflex to confirmation (09/06/2024 9:41 AM EDT) Pathologist [facility] Hepatitis B Surface Ag Negative Negative LAB CHEMISTRY METHOD 09/06/2024 3:20 PM EDT [facility] Hepatitis A Antibody IgM Negative Negative LAB CHEMISTRY METHOD 09/06/2024 3:20 PM EDT [facility] Hep B Core IgM Negative Negative LAB CHEMISTRY METHOD 09/06/2024 3:20 PM EDT [facility] Hepatitis C Antibody Negative Negative LAB CHEMISTRY METHOD 09/06/2024 3:20 PM EDT [facility] Blood Venous blood specimen / Unknown Venipuncture / Unknown 09/06/2024 9:41 AM EDT 09/06/2024 9:41 AM EDT us Katerine Le MD LAB BLOOD ORDERABLES Final Result Performing Organization Address [facility]/ZIP Co de Phone Number [facility] [address] [place] [address], [place] [phone] * Chlamydia trachomatis and Neisseria gonorrhoeae molecular study (09/06/2024 9:41 AM EDT) [facility] Neisseria gonorrhoeae PCR Negative Negative LAB MOLECULAR DIAGNOSTICS METHOD 09/06/2024 3:58 PM EDT [facility] Chlamydia trachomatis PCR Negative Negative LAB MOLECULAR DIAGNOSTICS METHOD 09/06/2024 3:58 PM EDT [facility] Swab Urine specimen obtained by clean catch procedure / Unknown Non-blood Collection / Unknown 09/06/2024 9:41 AM EDT 09/06/2024 9:41 AM EDT Katerine Le MD LAB MICROBIOLOGY - GENERAL ORDERABLES Final Result [facility] ([facility]) [facility] [address] [place] [address], * Depression Screening (08/03/2023) Pathologist [facility] Depression Screening abstracted Historical Provider HEALTH MAINTENANCE Final Result from Last 3 Months or Most Recently Relevant to Health [place] [id number] [facility] Care Teams Boilermaker Fitter Relationship Specialty Start Date End Date Katerine Le MD [address] [place] [address] PCP - General 12/01/23
[2025-03-06 23:00] VITALS: BP 129/84; PULSE 83; RESP 17; TEMP 36.9; O2SAT 98
[2025-03-06] MEDS: Sucralfate Oral Suspension 1 GM/10 ML ORAL.SUSP PO (23:35)
[2025-03-06 23:42] VITALS: BP 129/84; PULSE 83; RESP 17; TEMP 36.9; O2SAT 98
== END 2025-03-06 23:44 | disposition home or self-care (01) ==
PROVIDERS: Physician Assistant Medical; Emergency Provider Emergency Medicine; PCP Internal Medicine
DX: R10.13 Epigastric pain (principal); K21.9 Gastro-esophageal reflux disease without esophagitis; I10 Essential (primary) hypertension; R07.9 Chest pain, unspecified; K59.00 Constipation, unspecified
CPT/HCPCS: 36415; 74018; 80053; 81001; 83690; 83735; 84484; 84702; 85025; 87086; 93005; 99283; 99285

== ENCOUNTER → 2025-03-06 15:40 | Outpatient (BNV) | payer OTHER, SELFPAY | PROVIDERS: Emergency Provider Emergency Medicine; PCP Internal Medicine; Visit Provider Internal Medicine Cardiovascular Disease | DX: R94.31 Abnormal electrocardiogram [ECG] [EKG] (principal); R07.9 Chest pain, unspecified | CPT/HCPCS: 93010 ==

== ENCOUNTER → 2025-03-06 21:44 | Outpatient (BNV) | payer OTHER, SELFPAY | PROVIDERS: Emergency Provider Emergency Medicine; PCP Internal Medicine; Visit Provider Radiology Diagnostic Radiology | DX: K59.00 Constipation, unspecified (principal); R10.9 Unspecified abdominal pain | CPT/HCPCS: 74018 ==

== ENCOUNTER 2025-04-23 06:28 | Emergency (ER) | payer OTHER, SELFPAY ==
--- NOTE | ~2025-04-23 | US_ITS ---
EXAMINATION: US RETROPERITONEAL LIMITED (RENAL ONLY) CLINICAL INFORMATION: Right flank pain. Microhematuria.. COMPARISON: None available. TECHNIQUE: Real-time ultrasound kidneys using grayscale technique. FINDINGS: RIGHT KIDNEY: 10 x 5 x 6 cm (SAG x AP x TRV). Volume: 84 cc. Normal echotexture. Renal cortical thickness is normal. Prominent pelvicalyceal system. No gross solid or cystic lesion. Probable trace of perirenal fluid. LEFT KIDNEY: 11 x 6.6 cm (SAG x AP x TRV). Volume: 208 cc. Normal echotexture. Renal cortical thickness is normal. No hydronephrosis. 3 mm hyperechoic structure at the mid/lower pole junction. US/US renal BI IMPRESSION: Mild to moderate hydronephrosis, right kidney. Probable trace of hepatic fluid. Obstructing calculus cannot be excluded. 3 mm nonobstructing calculus, left kidney.. Electronically signed by: Otilio Hatch MD 04/23/2025 08:57 AM DIDIER
--- NOTE | ~2025-04-23 | CT_ITS ---
EXAMINATION: CT ABDOMEN PELVIS WITHOUT IV CONTRAST HISTORY: r/o obstructing stone COMPARISON: There are no prior studies available for comparison. TECHNIQUE: CT scan of the abdomen and pelvis was performed without contrast using standard departmental protocol. Coronal and sagittal reformatted images were generated and reviewed. Oral contrast material was not administered per department protocol. This CT exam was performed with one or more of the following dose reduction techniques: automated exposure control, adjustment of the mA and/or kV according to patient size, use of iterative reconstruction technique. DLP: 666 mGy-cm FINDINGS: LOWER CHEST: The visualized lung bases are clear. There is no pleural effusion. CARDIOVASCULATURE: The heart is normal in size. There is no pericardial effusion. LIVER: The liver is normal in size and contour. The liver has an unremarkable unenhanced appearance. GALLBLADDER / BILE DUCTS: The gallbladder is unremarkable. There is no intra or extrahepatic biliary ductal dilatation. SPLEEN: The spleen is normal in size and has an unremarkable unenhanced appearance. PANCREAS: The pancreas has an unremarkable unenhanced appearance. ADRENAL GLANDS: Unremarkable. KIDNEYS/RETROPERITONEUM: There is a punctate nonobstructing calculus at the upper pole of the right kidney. There is mild right hydroureteronephrosis to the level of a punctate UVJ calculus. There may be a punctate nonobstructing left renal calculi. No left hydronephrosis. LYMPH NODES: No retroperitoneal lymphadenopathy is identified in the abdomen or pelvis. VASCULATURE: The abdominal aorta is normal in caliber. MESENTERY/PERITONEUM: No free fluid. No masses. There is no free intraperitoneal gas. STOMACH: The stomach is unremarkable. SMALL BOWEL: The small bowel is normal in caliber. COLON: The colon is unremarkable. APPENDIX: Normal. URINARY BLADDER/PELVIC ORGANS: The urinary bladder is unremarkable. The uterus and ovaries have an unremarkable unenhanced appearance. BONES / SOFT TISSUES: No suspicious bony or soft tissue abnormalities. CT/CT abdomen pelvis wo IV con IMPRESSION: Mild right hydronephrosis secondary to a punctate UVJ calculus. Additional punctate nonobstructing calculus at the upper pole of the right kidney. Possible tiny left renal calculi. Electronically signed by: Shaun Tony MD 04/23/2025 10:15 AM EST TEOFILO
[2025-04-23 06:30] VITALS: BP 169/92; PULSE 51; RESP 16; TEMP 36.3; O2SAT 98; BMI 33.5
--- OUTSIDE RECORDS SUMMARY | 2025-04-23 06:47 | XMS_ITS | Clinical Summary ---
Author Organization [address] Address [address] [place] [phone] Phone Care Team Providers Care Coding Validator Name Role Phone Katerine Le MD Primary Care Provider Allergies No known active allergies Medications FLUoxetine (PROzac) 20 mg capsule Take 1 capsule (20 mg total) by mouth 1 (one) time each day in the morning. 4 Active hydrOXYzine HCL (ATARAX) 10 mg tablet Take 1 tablet (10 mg total) by mouth every 6 (six) hours if needed for anxiety. 3 Active pantoprazole (PROTONIX) 40 mg EC tabletIndicatio ns:Gastroesopha geal reflux disease, unspecified whether esophagitis present Take 1 tablet (40 mg total) by mouth 1 (one) time each day before breakfast. Do not crush, chew, or split. 30 each 2 5 026 Active medroxyPROGESTE Rodrigo (PROVERA) 10 mg tabletIndicatio ns:PCOS (polycystic ovarian syndrome) Take 1 tablet (10 mg total) by mouth 1 (one) time each day for 10 days. 30 tablet 3 5 Active tirzepatide, weight loss, (Zepbound) 7.5 mg/0.5 mL injectionIndica tions:Class 3 severe obesity due to excess calories with body mass index (BMI) of 40.0 to 44.9 in adult, unspecified whether serious comorbidity present (CMS/[facility] V24, CMS/HCC V28) Inject 0.5 mL (7.5 mg total) under the skin every 7 (seven) days. 2 mL 5 025 Discontinued tirzepatide, weight loss, (Zepbound) 2.5 mg/0.5 mL injectionIndica tions:Class 1 obesity due to excess calories with body mass index (BMI) of 34.0 to 34.9 in adult, unspecified whether serious comorbidity present Inject 0.5 mL (2.5 mg total) under the skin every 7 (seven) days for 4 doses. 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 06/30/18 Jordans f/u - home exercises for core strengthening [...] Encounters Date Type Department Care Team Description 04/09/2025 Results Follow-Up Obstetrics and Gynecology - [address] [phone] Ceci Sims CNM 04/05/2025 4:15 PM EST Lab Draw Station - [address] PCOS (polycystic ovarian syndrome); Menstrual bleeding problem; Erythrocytosis; Hyperlipidemia, unspecified hyperlipidemia type 04/05/2025 3:30 PM EST Office Visit Obstetrics and Gynecology [address] [phone] Ceci Sims CNM PCOS (polycystic ovarian syndrome) (Primary Dx); Menstrual bleeding problem 03/26/2025 8:30 AM EST Office Visit Bariatric Surgery - [address] [place] [address] Arnulfo Kelly MD Class 1 obesity due to excess calories with body mass index (BMI) of 34.0 to 34.9 in adult, unspecified whether serious comorbidity present (Primary Dx); Gastroesophageal reflux disease, unspecified whether esophagitis present 03/15/2025 Telephone Adult Medicine [address] [phone] Chyna Walls [place] 03/07/2025 Telephone Adult Medicine [address] [phone] Chyna Walls [place] 03/04/2025 Telephone Adult Medicine [address] [phone] Katerine Le MD 02/05/2025 2:00 PM EDT Nutrition Bariatric Surgery [address] [phone] Class 2 obesity without serious comorbidity with body mass index (BMI) of 36.0 to 36.9 in adult, unspecified obesity type (Primary Dx) 02/05/2025 [facility] [address] [phone] Arnulfo Kelly MD from Last 3 Months Immunizations Immunization Administration Dates Next Due DTaP (Infanrix) 6wks to less than 7yo 2009 DTaP / Hib 11/14/2006 [id number] (Pentacel) 2mo to less than 5yo 2005,2005,2005 [id number] (Pediarix) 6 w ks to less than [...] than 19 yo 07/30/2022 Meningococcal MCV4P 10/13/2017 [place] SARS-CoV-2 COVID-19, mRNA, LNP-S, preservative free 05/23/2021,12/27/2020 [...] 2017 DX:Scoliosis; CO MMENT: was diagnosed at [facility] Family History Medical History Relation Name Comments Other: Enlarged Heart Maternal Grandfather ?genetic Other: lactose intol Maternal Grandfather Alcohol/Drug Mother Breast cancer Mother's side Allergies Other 1 MATERNAL SIDE Asthma Other 2 MATERNAL SIDE Other cancer Other 3 MATERNAL SIDE Other: HEART Other 4 MATERNAL SIDE- Maternal great uncle -40s and maternal great aunt [place] -40s Other: PULMONARY Other 5 MATERNAL SI [...] Sexual Orientation Not on file Obstetrics History Para Term AB IAB SAB Ectopic Multiple Livin g Live Births 0 0 0 0 0 0 0 0 Growth Chart Information Age Height Weight Mdffir-eoy-qgab th Percentile BMI Percentile Head Circum Head Circum Percentile Date 19 years 92.1 kg (203 lb) 2024 19 years 162.6 cm (5' 4 ) 90.3 kg (199 lb) 96.30%* 2024 19 years 93.9 kg (207 lb) 2024 [...] Sign Reading Time Taken Comments Blood Pressure 139/88 04/05/2025 3:42 PM EST Pulse 67 04/05/2025 3:42 PM EST Temperature 36.6 C (97.8 F) 03/26/2025 8:55 AM EST Respiratory Rate 14 04/05/2025 3:42 PM EST Oxygen Saturation - - Inhaled Oxygen Concentration - - Weight 92.1 kg (203 lb) 04/05/2025 3:42 PM EST Height 162.6 cm (5' 4 ) 03/26/2025 8:55 AM EST Body Mass Index 34.84 03/26/2025 8:55 AM EST Plan of Treatment Upcoming Encounters Date Type Department Care Team (Late st Contact Info) Description 05/13/2025 8:30 AM EST Nutrition Bariatric Surgery - [place] [address] [address] Niki Campbell, RD [address] [phone] 06/14/2025 10:50 AM EST Office Visit [facility] [address] [place] [phone] Irma Clark MD [address] [place] [phone] 08/13/2025 11:45 AM EDT Office Visit Bariatric Surgery - [place] [address] [place] [address] Arnulfo Kelly MD [address] [place] [phone] 09/10/2025 3:00 PM EDT Office Visit Adult Medicine [facility] [address] [place] [address] Katerine Le MD [address] [place] [address] Health Maintenance Due Date Last Done Comments [...] of Health Screening 09/05/2025 09/05/2024 Gonorrhea/Chlamydia Screening 04/05/2026 04/05/2025, 09/06/2024, 01/02/2024 DTaP,Tdap,and Td Vaccines (7 - [...] Diagnosis Comments CBC WITH AUTO DIFFERENTIAL Routine 04/05/2025 4:17 PM EST Erythrocytosis LIPID PANEL WITH REFLEX TO DIRECT LDL Routine 04/05/2025 4:17 PM EST Hyperlipidemia, unspecified hyperlipidemia type CBC AND DIFFERENTIAL Routine 04/05/2025 4:17 PM EST Erythrocytosis TRICHOMONAS VAGINALIS ANTIGEN Routine 04/05/2025 4:00 PM EST Menstrual bleeding problem CHLAMYDIA TRACHOMATIS AND NEISSERIA GONORRHOEAE PCR Routine 04/05/2025 4:00 PM EST Menstrual bleeding problem HEPATITIS PANEL, ACUTE WITH REFLEX TO CONFIRMATION Routine 09/06/2024 9:41 AM EDT Annual physical exam HIV 1, 2 ANTIBODY, P24 ANTIGEN WITH REFLEX TO DIFFERENTIATION Routine 09/06/2024 9:41 AM EDT Annual physical exam DEPRESSION SCREENING Routine 08/03/2023 from Last 3 Months or Most Recently Relevant to Health Maintenance Results * Lipid panel with reflex to direct LDL (04/05/2025 4:17 PM EST) Cholesterol 119 0 - 200 mg/dL 04/05/2025 7:[address] [facility] Triglycerides 76 0 - 150 mg/dL 04/05/2025 7:[address] [facility] HDL 46 >=40 mg/dL 04/05/2025 7:[address] [facility] LDL Calculated 58 0 - 100 mg/dL 04/05/2025 7:[address] [facility] Comment:Estimated LDL Calcul ated using equation: Total cholesterol - HDL cholesterol - (Triglycerides/5) VLDL Cholesterol Jagdish 15.2 mg/dL 04/05/2025 7:[address] [facility] Non HDL Chol. (LDL+VLDL) 73 <145 mg/dL 04/05/2025 7:[address] [facility] Chol/HDL Ratio 2.6 0.0 - 4.4 04/05/2025 7:[address] [facility] Blood Venous blood specimen / Unknown Venipuncture / Unknown 04/05/2025 4:17 PM EST 04/05/2025 4:17 PM EST us Katerine Le MD LAB BLOOD ORDERABLES Final Result [facility] [address] [place] [address], [place] [phone] * (ABNORMAL) CBC auto differential (04/05/2025 4:17 PM EST) WBC 9.9 4.8 - 10.8 K/mcL LAB HEMETOLOGY METHOD 04/05/2025 7:22 PM [facility] RBC 4.70 3.80 - 4.80 M/mcL LAB HEMETOLOGY METHOD 04/05/2025 7:22 PM [facility] Hemoglobin 13.1 11.5 - 16.0 g/dL LAB HEMETOLOGY METHOD 04/05/2025 7:22 PM [facility] Hematocrit 41.0 35.0 - 47.0 % LAB HEMETOLOGY METHOD 04/05/2025 7:22 PM [facility] MCV 87.2 79.0 - 98.0 FL LAB HEMETOLOGY METHOD 04/05/2025 7:22 PM [facility] MCH 27.9 27.0 - 32.0 pcg LAB HEMETOLOGY METHOD 04/05/2025 7:22 PM [facility] MCHC 32.0 32.0 - 37.0 g/dL LAB HEMETOLOGY METHOD 04/05/2025 7:22 PM [facility] RDW 13.2 11.0 - 15.0 % LAB HEMETOLOGY METHOD 04/05/2025 7:22 PM [facility] Platelets 270 130 - 400 K/mcL LAB HEMETOLOGY METHOD 04/05/2025 7:22 PM [facility] MPV 11.5(H) 7.0 - 11.0 FL LAB HEMETOLOGY METHOD 04/05/2025 7:22 PM [facility] NRBC 0.0 <1.0 % LAB HEMETOLOGY METHOD 04/05/2025 7:22 PM [facility] NRBC Absolute 0.00 <0.10 K/mcL LAB HEMETOLOGY METHOD 04/05/2025 7:22 PM [facility] Neutrophils Relative 68.7 % LAB HEMETOLOGY METHOD 04/05/2025 7:22 PM [facility] Lymphocytes Relative 23.1 % LAB HEMETOLOGY METHOD 04/05/2025 7:22 PM [facility] Monocytes Relative 6.4 % LAB HEMETOLOGY METHOD 04/05/2025 7:22 PM [facility] Eosinophils Relative 1.2 % LAB HEMETOLOGY METHOD 04/05/2025 7:22 PM [facility] Basophils Relative 0.4 % LAB HEMETOLOGY METHOD 04/05/2025 7:22 PM [facility] Immature Granulocytes Relative 0.2 % LAB HEMETOLOGY METHOD 04/05/2025 7:22 PM [facility] Neutrophils Absolute 6.78 1.50 - 7.00 K/mcL LAB HEMETOLOGY METHOD 04/05/2025 7:22 PM [facility] Lymphocytes Absolute 2.28 1.00 - 5.00 K/mcL LAB HEMETOLOGY METHOD 04/05/2025 7:22 PM [facility] Monocytes Absolute 0.63 0.20 - 1.00 K/mcL LAB HEMETOLOGY METHOD 04/05/2025 7:22 PM [facility] Eosinophils Absolute 0.12 0.00 - 0.50 K/mcL LAB HEMETOLOGY METHOD 04/05/2025 7:22 PM [facility] Basophils Absolute 0.04 0.00 - 0.20 K/mcL LAB HEMETOLOGY METHOD 04/05/2025 7:22 PM [facility] Immature Granulocytes Absolute 0.02 0.00 - 0.03 K/mcL LAB HEMETOLOGY METHOD 04/05/2025 7:22 PM [facility] Blood Venous blood specimen / Unknown Venipuncture / Unknown 04/05/2025 4:17 PM EST 04/05/2025 4:17 PM EST Katerine Le MD LAB BLOOD ORDERABLES Final Result [facility] [address] [place] [address], [place] [phone] * Trichomonas vaginalis antigen (04/05/2025 4:00 PM EST) Trichomonas vaginalis Negative Negative 04/05/2025 8:[address] [facility] Swab Vaginal structure / Unknown Non-blood Collection / Unknown 04/05/2025 4:00 PM EST 04/05/2025 4:00 PM EST us Ceci Sims CNM LAB MICROBIOLOGY - GENERAL ORDE RABJUANITO Final Result Performing Organization Address [facility]/ZIP Co de Phone Number [facility] [address] [place] [address], [place] [phone] * Chlamydia trachomatis and Neisseria gonorrhoeae molecular study (04/05/2025 4:00 PM EST) Pathologist [facility] Neisseria gonorrhoeae PCR Negative Negative LAB MOLECULAR DIAGNOSTICS METHOD 04/06/2025 9:[address] [facility] Chlamydia trachomatis PCR Negative Negative LAB MOLECULAR DIAGNOSTICS METHOD 04/06/2025 9:[address] [facility] Swab Cervix uteri structure / Unknown Non-blood Collection / Unknown 04/05/2025 4:00 PM EST 04/05/2025 4:00 PM EST us Ceci Sims CNM LAB MICROBIOLOGY - GENERAL ORDE RABJUANITO Final Result [facility] [address] [place] [address], [place] [phone] * HIV 1,2 antibody, p24 antigen with reflex to differentiation (09/06/2024 9:41 AM EDT) HIV Combo AB/AG Negative Negative LAB CHEMISTRY METHOD 09/06/2024 3:[address] [facility] Blood Venous blood specimen / Unknown Venipuncture / Unknown 09/06/2024 9:41 AM EDT 09/06/2024 9:[address] [facility] - 09/06/2024 3:19 PM EDT [...] Le MD LAB BLOOD ORDERABLES Final Result [facility] [address] [place] [address], [place] [phone] * Hepatitis panel, acute with reflex to confirmation (09/06/2024 9:41 AM EDT) Hepatitis B Surface Ag Negative Negative LAB CHEMISTRY METHOD 09/06/2024 3:[address] [facility] Hepatitis A Antibody IgM Negative Negative LAB CHEMISTRY METHOD 09/06/2024 3:[address] [facility] Hep B Core IgM Negative Negative LAB CHEMISTRY METHOD 09/06/2024 3:[address] [facility] Hepatitis C Antibody Negative Negative LAB CHEMISTRY METHOD 09/06/2024 3:[address] [facility] Blood Venous blood specimen / Unknown Venipuncture / Unknown 09/06/2024 9:41 AM EDT 09/06/2024 9:41 AM EDT us Katerine Le MD LAB BLOOD ORDERABLES Final Result Performing Organization Address City/[facility]/ZIP Co de Phone Number [facility] [address] [place] [address], [place] [phone] * Hm Depression Screening (08/03/2023) Depression Screening abstracted us Historical Provider HEALTH MAINTENANCE Final Result from Last 3 Months or Most Recently Relevant to Health Maintenance [place] [id number] [facility] [employer] Care Teams Coding Validator Relationship Specialty Start Date End Date Katerine Le MD [address] [place] [address] PCP - General 12/01/23
--- OUTSIDE RECORDS SUMMARY | 2025-04-23 06:47 | XMS_ITS | Clinical Summary ---
Author Organization [facility] Address [address] [place] [address] Care Team Providers Care Svp Digital [employer] Food & Cooking Name Role Phone Katerine Le MD Primary Care Provider [phone] Allergies No known active allergies Medications Zepbound 7.5 mg/0.5 mL pen injector Inject 7.5 mg under the skin. 02/06/2025 Active Active Problems No known active problems Encounters Date Type Department Care Team Description 02/07/2025 4:30 PM EDT Consult [address] [address] Niki James PA Acute right-sided thoracic back pain (Primary Dx); Adolescent idiopathic scoliosis, unspecified spinal region; Adolescent idiopathic scoliosis of thoracic region 02/07/2025 4:15 PM EDT - 02/07/2025 11:59 PM EDT Hospital Encounter [address] [address] Adolescent idiopathic scoliosis, unspecified spinal region Discharge [...] Final Result from Last 3 Months Insurance [facility] Care Teams [employer] Food [employer] Cooking Relationship Specialty Start Date End Date Katerine Le MD [address] [place] [id number] PCP - General Internal Medicine 01/25/25
--- OUTSIDE RECORDS SUMMARY | 2025-04-23 06:47 | XMS_ITS | Encounter Summary ---
Author Organization [facility] Address [address] [place] [address] Care Team Providers Care Lap Regulator Name Role Phone Katerine Le MD Primary Care Provider [phone] Encounter Details Date Type Department Care Team (Late Contact Info) Description 04/09/2025 Results Follow-Up Obstetrics and Gynecology - [address] [phone] Ceci Sims, JUAN MANUEL [address] [place] [address] Social History Tobacco Use Types Packs/Day Years [...] Department Care Team (Late Contact Info) Description 05/13/2025 8:30 AM EST Nutrition Bariatric Surgery - [place] 175 [facility] [address] [place] [phone] Niki Campbell, RD 175 [facility] [address] [place] [address] 06/14/2025 10:50 AM EST Office Visit [facility] [address] [place] [phone] Irma Clark MD [address] [place] [address] [address] [place] [phone] 08/13/2025 11:45 AM EDT Office Visit Bariatric Surgery - [place] [address] [facility] [address] [place] [phone] Arnulfo Kelly MD [address] [place] [phone] 09/10/2025 3:00 PM EDT Office Visit Adult Medicine [facility] [address] [place] [phone] Katerine Le MD [address] [place], [place] documented as of this encounter Visit Diagnoses Not on filedocumented in this encounter Care Teams Lap Regulator Relationship Specialty Start Date End Date Katerine Le MD [address] [place], [place] PCP - General 12/01/23 documented as of this encounter
[2025-04-23 07:34] LABS: Hematocrit 45.4 % (37.0-47.0); Hemoglobin 14.7 g/dl (12.0-16.0); Imm Gran Abs Auto 0.03 X10*3/uL (0.00-0.03); Imm Gran Pct Auto 0.3 % (0.0-0.4); Lymphocytes Absolute Auto 0.9 X10*3/uL (1.2-4.9); MANUAL DIFF FLAG NO; Mean Corpuscular HGB Conc 32.4 g/dl (31.0-35.0); Mean Corpuscular Hemoglobin 27.9 pg (27.0-33.0); Mean Corpuscular Volume 86.3 fL (80.0-98.0); NRBC Abs Auto 0.000 X10*3/uL (0.0-0.012); NRBC Pct Auto 0.0 /100WBC (0.0-0.2); Platelet Count 278 X10*3/uL (160-400); Red Blood Count 5.26 X10*6/uL (4.20-5.50); White Blood Count 11.7 X10*3/uL (4.8-10.8)
[2025-04-23 07:49] LABS: Magnesium 1.7 mg/dL (1.6-2.6); UPreg QC Valid YES
[2025-04-23 07:50] LABS: Appearance Urine Clear; Glucose Urine UA Negative (Negative); PH 6.0 (5.0-9.0); Specific Gravity - Urine 1.025 (1.005-1.025); UMIC TRIGGER UACC YES
[2025-04-23 07:51] LABS: Alanine Aminotransferase 17 U/L (0-31); Albumin Level 4.5 g/dL (3.5-5.0); Alkaline Phosphatase 57 U/L (39-117); Anion Gap 9 (12-20); Aspartate Amino Transferase 24 U/L (5-31); Blood Urea Nitrogen 12 mg/dL (9-16); Calcium 9.5 mg/dL (8.4-10.2); Carbon Dioxide 29 mmol/L (22-29); Chloride 108 mmol/L (96-108); Creatinine Clr Calc Pharmacy 105.8; Estimated Glomerular Filt Rate > 60; Potassium 4.1 mmol/L (3.3-5.1); Sodium 142 mmol/L (135-145); Total Protein 7.3 g/dL (6.5-8.0)
--- NOTE | 2025-04-23 07:54 | ED_ITS ---
HPI - Back Pain/Injury General Chief Complaint: Back Pain/Injury Stated Complaint: Back Pain Time Seen by Provider: 04/23/25 06:59 Source: patient, family, RN notes reviewed and old records reviewed Mode of arrival: ambulatory History of Present Illness ED Provider: Marcela Stapleton PA-C HPI Narrative: 19-year-old female with a past medical history of anxiety, HTN, presenting to the ED complaining of right-sided low back/flank pain since midnight with associated nausea and vomiting secondary to pain. Denies known injury, trauma, fall, fever, chills, dysuria / hematuria, incontinence /retention. Admits to similar symptoms in the past associated with UTI Related Data Previous Rx's ?Medication ?Instructions ?Recorded cefpodoxime 200 mg tablet 200 mg PO BID #20 tabs 12/14 metoclopramide HCl 10 mg tablet 10 mg PO Q6H PRN nause a and 02/19/25 (Reglan) vomiting #12 tabs sucralfate 1 gram tablet (Carafate) 1 g PO BID PRN ind igestion #10 tabs 02/19/25 omeprazole 40 mg capsule,delayed 40 mg PO DAILY #20 ca ps 02/25/25 release sucralfate 1 gram tablet 1 g PO QID PRN dyspepsia #12 tabs 03/06/25 naproxen 500 mg tablet 500 mg PO BID PRN pain 10 da ys #20 04/23/25 tabs tamsulosin 0.4 mg capsule 0.4 mg PO DAILY 10 days #10 caps 04/23/25 Allergies Allergy/AdvReac Type Severity Reaction Status Date / Time No Known Allergies Allergy Verified 04/23/25 06:32 Review of Systems 2 Review of Systems: Yes all other systems are reviewed and are negative Constitutional: Constitutional: Reports as per HPI Neurologic: Denies Sensory deficit (Neuro) [facility] Past Medical History Attestation statement: The following information was validated with the patient. Source: old records reviewed Medical History Anxiety Palpitations Secondary amenorrhea BMI (body mass index), pediatric, greater than 99% for age High blood pressure Family History Family History Mother Chronic anxiety Social History Social History Household Members Other:: mother, father Alcohol intake: never Patient Tobacco Use Status: Never used Tobacco Sexual orientation: Straight/Heterosexual Physical Exam 2 Vital Signs: Vital Signs: Last Vital Signs Temp 97.4 F 04/23/25 11:23 Pulse 51 04/23/25 11:23 Resp 16 04/23/25 11:23 BP 169/92 H 04/23/25 11:23 Pulse Ox 98 04/23/25 11:23 O2 Del Method Room Air 04/23/25 11:23 BMI result Body Mass Index 33.5 Const: General: cooperative, healthy appearing and no acute distress O rientation/consciousness: patient oriented x3 Limitations: no limitations HEENT: Head: Yes normal to inspection and Yes atraumatic Ears: hearing grossly normal bilaterally General nose exam: Normal external nose present Face and sinus: Yes normal facial exam Eyes: General: appearance normal, both eyes and all related structures EOM: EOMs intact bilaterally Neck: Neck: Yes normal visual inspection and Yes no meningeal signs Resp: Effort & Inspection: normal respiratory effort and no respiratory distress Auscultation: clear to auscultation bilaterally Cardio: Rate: regular rate Heart sounds: S1 normal heart sound present and S2 normal heart sound present GI: Inspection: Yes normal to inspection Palpation (GI): Soft to palpation, nontender, no guarding and not rigid : General: Yes no CVA tenderness Back/Spine/Pelvis: Other: No midline cervical/thoracic/lumbar spinous tenderness/step-off or deformity. back pain not reproducible to palpation. No erythema / warmth/rash or ecchymosis Back: no CVA tenderness Skin: Rashes: no rashes Wounds: no wounds Neuro: Other: Strength intact throughout. No saddle anesthesia. Sensation intact to light touch. Neurovascular intact distally General: patient oriented x3, gait normal, tone normal, moves all extremities, no meningeal signs and no focal motor deficits Cranial nerves: Y es CN's II-XII intact bilaterally Gait exam (Neuro): Normal gait present M otor exam (neuro): 5/5 motor strength present throughout Sensory Exam: No Sensory deficit (Neuro) Extrem: General: Yes normal to inspection Course Course Course Narrative: - labs reassuring - UA with large blood/ RBCs. Not infected US renal BI IMPRESSION: Mild to moderate hydronephrosis, right kidney. Probable trace of hepatic fluid. Obstructing calculus cannot be excluded. 3 mm nonobstructing calculus, left kidney. > will obtain CT for further eval CT abdomen pelvis wo IV con IMPRESSION: Mild right hydronephrosis secondary to a punctate UVJ calculus. Additional punctate nonobstructing calculus at the upper pole of the right kidney. Possible tiny left renal calculi. >1044-- on re-evaluation patient reports symptomatic improvement. Sitting comfortably in stretcher. tolerating p.o. Plan for close PCP /urology follow up Results discussed with patient including worrisome signs and symptoms and strict return precautions, and when to return to the emergency department. They verbalized understanding and feel safe for discharge at this time. Medications Administered Discontinued Medications Generic Name Dose Route Start Last Admin Trade Name Freq PRN Reason Stop Dose Admin Sodium Chloride 1,000 mls @ 999 mls/hr 04/23/25 07:30 04/23/25 08:52 Ns IV 04/23/25 08:30 Infused .Q1H1M MARIANNE Infusion Ketorolac Tromethamine 15 mg 04/23/25 07:17 04/23/25 07:31 Ketorolac Tromethamine 15 Mg/Ml Vial IVPUSH 04/23/25 07:18 15 mg ONCE ONE Administration Ketorolac Tromethamine 15 mg 04/23/25 09:11 04/23/25 09:31 Ketorolac Tromethamine 15 Mg/Ml Vial IVPUSH 04/23/25 09:12 15 mg ONCE ONE Administration Ondansetron HCl 4 mg 04/23/25 07:17 04/23/25 07:31 Ondansetron Hcl 4 Mg/2 Ml Vial IVPUSH 04/23/25 07:18 4 mg ONCE ONE Administration Tamsulosin HCl 0.4 mg 04/23/25 10:19 04/23/25 10:29 Tamsulosin Hcl 0.4 Mg Capsule PO 04/23/25 10:20 0.4 mg ONCE ONE Administration Medical Decision Making Medical Decision Making MDM Narrative: 19-year-old female with a past medical history of anxiety, HTN, presenting to the ED complaining of right-sided low back/flank pain since midnight with associated nausea and vomiting secondary to pain. on exam vital signs stable, NAD, nontoxic appearing, no midline spinous tenderness throughout. No red flag symptoms. Back pain not reproducible to palpation. Abdomen is soft and nontender. No CVAT. Concern for MSK pain / strain vs renal stone vs pyelo. Lower suspicion for acute pancreatitis /cholecystitis / lithiasis, cauda equina/ cord compression or epidural abscess. Plan: Labs, UA, pain management, re-evaluate Please refer to course for remaining clinical decision making, interpretation of labs/imaging results, and discussions with consultants and/or family members. Differential Diagnosis Differential Diagnoses: The differential diagnosis associated with the presentation includes As above Admission/Observation Consideration of admission/observation: Escalation of care including admission/observation considered Lab Data MDM Lab Attestation statement: I reviewed the patient's lab results. 04/23/25 07:23 04/23/25 07:23 Labs: Lab Results 04/23/25 Range/Units 07:23 WBC 11.7 H (4.8-10.8) X10*3/uL RBC 5.26 (4.20-5.50) X10*6/uL Hgb 14.7 (12.0-16.0) g/dl Hct 45.4 (37.0-47.0) % MCV 86.3 (80.0-98.0) fL MCH 27.9 (27.0-33.0) pg MCHC 32.4 (31.0-35.0) g/dl RDW 13.1 (11.0-16.0) % Plt Count 278 (160-400) X10*3/uL MPV 10.6 (9.4-12.3) fL Immature Gran % (Auto) 0.3 (0.0-0.4) % Neut % (Auto) 88.7 H (45-73) % Lymph % (Auto) 7.5 L (20-40) % [place] % (Auto) 3.0 (2-11) % Eos % (Auto) 0.2 (0-4) % Baso % (Auto) 0.3 (0-2) % Lymph # (Auto) 0.9 L (1.2-4.9) X10*3/uL [place] # (Auto) 0.4 (0.1-1.2) X10*3/uL Eos # (Auto) 0.0 (0.0-0.4) X10*3/uL Baso # (Auto) 0.0 (0.0-0.2) X10*3/uL Abs Immat Gran (auto) 0.03 (0.00-0.03) X10*3/uL Absolute Neuts (auto) 10.4 H (2.0-8.3) x10*3/uL Absolute Nucleated RBC 0.000 (0.0-0.012) X10*3/uL Nucleated RBC % (auto) 0.0 (0.0-0.2) /100WBC Sodium 142 (135-145) mmol/L Potassium 4.1 D (3.3-5.1) mmol/L Chloride 108 (96-108) mmol/L Carbon Dioxide 29 (22-29) mmol/L Anion Gap 9 L (12-20) BUN 12 (9-16) mg/dL Creatinine 0.92 (0.5-1.4) mg/dL Estim Creat Clear Calc 105.8 Estimated GFR > 60 Random Glucose 117 H (60-115) mg/dL Calcium 9.5 (8.4-10.2) mg/dL Magnesium 1.7 (1.6-2.6) mg/dL Total Bilirubin 0.2 (0.0-1.0) mg/dL AST 24 (5-31) U/L ALT 17 (0-31) U/L Alkaline Phosphatase 57 (39-117) U/L Total Protein 7.3 (6.5-8.0) g/dL Albumin 4.5 (3.5-5.0) g/dL Urine Color Yellow Urine Appearance Clear Urine pH 6.0 (5.0-9.0) Ur Specific [place] 1.025 (1.005-1.025) Urine Protein 30 (1+) H (Neg-Trace) mg/dL Urine Glucose (UA) Negative (Negative) mg/dL Urine Ketones Trace (Negative) mg/dL Urine Blood Large (3+) H (Negative) Urine Nitrite Negative (Negative) Ur Leukocyte Esterase Negative (Negative) Urine RBC >20 H (0-2) /HPF Urine WBC 0-5 (0-5) /HPF Ur Squamous Epith Cells 3-5 (0-2) /HPF Urine Bacteria None Seen (None Seen) Hyaline Casts 3-5 (0-2) /LPF Urine Test NEGATIVE (NEGATIVE) Radiology Impression Discussion of test interpretation with radiology: I have reviewed the radiologist's reading. Independent Historian Clinical information obtained from an independent historian. History obtained from or confirmed by: Parent External Record Review External record reviewed: Inpatient record, Office record, Outpatient record, Prior outpatient labs, Prior outpatient radiology, Primary care record and Outside ED record Tests considered The following testing was considered but not selected: As above Prescription Management I considered prescription management with: Pain Medication Chronic Conditions Patient?s care impacted by: Hypertension Social Determinants Patient?s care significantly limited by Social Determinants of Health including: Other Social Determinant of Health Discharge Plan Discharge Clinical Impression: Calculus of ureterovesical junction (UVJ) Patient Disposition: Home, Self-Care Instructions: Ureteral Stones (ED) Additional Instructions: your blood work is reassuring. Your CAT scan shows mild hydronephrosis and a UVJ calculus and some stones in your right kidney The stones should pass on their own. MAKE SURE YOU INCREASE FLUID INTAKE. Naproxen as an anti-inflammatory /pain medication, take with food. Flomax will help dilate the ureter Zofran as for nausea, take as needed for nausea and vomiting Please make follow up with Urology. If her symptoms persist or worsen/pain becomes unbearable, you have fever, persistent nausea / vomiting return to the ED Prescriptions: New naproxen 500 mg tablet 500 mg PO BID PRN (Reason: pain) 10 Days Qty: 20 0RF tamsulosin 0.4 mg capsule 0.4 mg PO DAILY 10 Days Qty: 10 0RF No Action metoclopramide HCl [Reglan] 10 mg tablet 10 mg PO Q6H PRN (Reason: nausea and vomiting) Qty: 12 0RF sucralfate [Carafate] 1 gram tablet 1 g PO BID PRN (Reason: indigestion) Qty: 10 0RF sucralfate 1 gram tablet 1 g PO QID PRN (Reason: dyspepsia) Qty: 12 0RF cefpodoxime 200 mg tablet 200 mg PO BID Qty: 20 0RF Rx Instructions: must administer with a meal/food omeprazole 40 mg capsule,delayed release(DR/EC) 40 mg PO DAILY Qty: 20 0RF Referrals: [facility] [Provider Group, Urology] - 1 week Katerine Le MD [Primary Care Provider, Internal Medicine] - 1 week Stand Alone Forms: Work/School Release Interventions: ED Discharge Assessment Last Done: 04/23/25 11:23 Discharge Date/Time: 04/23/25 11:24 Print Language: Uzbek
[2025-04-23 11:23] VITALS: BP 169/92; PULSE 51; RESP 16; TEMP 36.3; O2SAT 98
== END 2025-04-23 11:24 | disposition home or self-care (01) ==
PROVIDERS: Physician Assistant; Emergency Provider Emergency Medicine Emergency Medical Services; PCP Internal Medicine
DX: N20.1 Calculus of ureter (principal); R31.29 Other microscopic hematuria; R10.A1 Flank pain, right side; I10 Essential (primary) hypertension; F41.9 Anxiety disorder, unspecified; R11.2 Nausea with vomiting, unspecified
CPT/HCPCS: 36415; 74176; 76775; 80053; 81001; 81025; 83735; 85025; 96361; 96374; 96375; 99284; 99285; J1885; J2405

== ENCOUNTER → 2025-04-23 07:54 | Outpatient (BNV) | payer OTHER, SELFPAY | PROVIDERS: Emergency Provider Emergency Medicine Emergency Medical Services; PCP Internal Medicine; Visit Provider Radiology Diagnostic Radiology | DX: N13.2 Hydronephrosis with renal and ureteral calculous obstruction (principal) | CPT/HCPCS: 74176; 76775 ==

== ENCOUNTER 2025-04-28 21:27 | Emergency (ER) | payer OTHER, SELFPAY ==
--- NOTE | 2025-04-28 21:28 | ECG_ITS ---
Test Reason : chest pain Blood Pressure : */* mmHG Vent. Rate : 52 BPM Atrial Rate : 52 BPM P-R Int : 174 ms QRS Dur : 96 ms QT Int : 432 ms P-R-T Axes : 35 11 4 degrees QTcB Int : 401 ms Sinus bradycardia Otherwise normal ECG When compared with ECG of 06-Mar-2025 15:45, No significant change was found Referred By: Generic ED Physician Electronically Signed By: Shalom Dave
[2025-04-28 21:40] VITALS: BP 150/97; PULSE 56; RESP 16; TEMP 36.7; O2SAT 99; BMI 34.2
[2025-04-28 22:11] LABS: MANUAL DIFF FLAG NO
[2025-04-28 22:19] LABS: Hematocrit 40.6 % (37.0-47.0); Hemoglobin 13.3 g/dl (12.0-16.0); Imm Gran Abs Auto 0.02 X10*3/uL (0.00-0.03); Imm Gran Pct Auto 0.2 % (0.0-0.4); Lymphocytes Absolute Auto 2.3 X10*3/uL (1.2-4.9); Mean Corpuscular HGB Conc 32.8 g/dl (31.0-35.0); Mean Corpuscular Hemoglobin 27.9 pg (27.0-33.0); Mean Corpuscular Volume 85.1 fL (80.0-98.0); NRBC Abs Auto 0.000 X10*3/uL (0.0-0.012); NRBC Pct Auto 0.0 /100WBC (0.0-0.2); Platelet Count 272 X10*3/uL (160-400); Red Blood Count 4.77 X10*6/uL (4.20-5.50); White Blood Count 9.7 X10*3/uL (4.8-10.8)
[2025-04-28 22:25] LABS: Alanine Aminotransferase 20 U/L (0-31); Albumin Level 4.5 g/dL (3.5-5.0); Alkaline Phosphatase 58 U/L (39-117); Anion Gap 11 (12-20); Aspartate Amino Transferase 21 U/L (5-31); Blood Urea Nitrogen 9 mg/dL (9-16); Calcium 9.3 mg/dL (8.4-10.2); Carbon Dioxide 27 mmol/L (22-29); Chloride 108 mmol/L (96-108); Creatinine Clr Calc Pharmacy 127.8; Estimated Glomerular Filt Rate > 60; Lipase 22 U/L (8-78); Potassium 3.8 mmol/L (3.3-5.1); Sodium 142 mmol/L (135-145); Total Protein 7.2 g/dL (6.5-8.0)
[2025-04-28 22:32] LABS: Troponin-I High Sensitivity < 2.7 ng/L (<3.5-17.0)
[2025-04-28 23:11] LABS: COVID-19 Test Negative (Negative); IDNOW Serial# 6674DD1D
[2025-04-28 23:12] LABS: IDNOW Serial# 08D9AD1C; Influenza B2 Negative (Negative)
[2025-04-28 23:24] VITALS: BP 145/88; PULSE 82; RESP 18; TEMP 36.8; O2SAT 99
--- NOTE | 2025-04-28 23:34 | ED_ITS ---
HPI - Abdominal Pain General Chief Complaint: Abdominal Pain Stated Complaint: abdominal/chest pain, prev. for kid. stone Time Seen by Provider: 04/28/25 23:11 History of Present Illness HPI narrative: Patient is a 19-year-old female presents today with having history of kidney stone. Patient was seen 5 days ago at that time was diagnosed with a UVJ stone on the right side. Presents today initially with pain in the right side then feel very nauseous then was having epigastric pain then feel dizzy then came to the ER. Patient denies any change in bowel movements. Patient is from home. no diaphoresis patient is from home Related Data Previous Rx's ?Medication ?Instructions ?Recorded cefpodoxime 200 mg tablet 200 mg PO BID #20 tabs 12/14 metoclopramide HCl 10 mg tablet 10 mg PO Q6H PRN nause a and 02/19/25 (Reglan) vomiting #12 tabs sucralfate 1 gram tablet (Carafate) 1 g PO BID PRN ind igestion #10 tabs 02/19/25 omeprazole 40 mg capsule,delayed 40 mg PO DAILY #20 ca ps 02/25/25 release sucralfate 1 gram tablet 1 g PO QID PRN dyspepsia #12 tabs 03/06/25 naproxen 500 mg tablet 500 mg PO BID PRN pain 10 da ys #20 04/23/25 tabs tamsulosin 0.4 mg capsule 0.4 mg PO DAILY 10 days #10 caps 04/23/25 Allergies Allergy/AdvReac Type Severity Reaction Status Date / Time No Known Allergies Allergy Verified 04/28/25 21:42 Review of Systems Review of Systems positive abdominal pain Yes all other systems are reviewed and are negative [facility] Past Medical History Attestation statement: The following information was validated with the patient. Medical History Anxiety Palpitations Secondary amenorrhea BMI (body mass index), pediatric, greater than 99% for age High blood pressure Family History Family History Mother Chronic anxiety Social History Social History Household Members Other:: mother, father Alcohol intake: never Patient Tobacco Use Status: Never used Tobacco Smoked in Last 30 Days: No Use of substances other than those prescribed or required for medical reasons: No Advance Directives: No Advance Directives Information Provided: No Do you have a plan to hurt others: No Plan Patient : No Sexual orientation: Straight/Heterosexual Physical Exam ED Exam Exam: Appearance: Alert. Oriented X3. No acute distress. Eyes: Pupils equal, round and reactive to light. ENT: Pharynx normal. Neck: Normal inspection. Neck supple. No lymph nodes noted. No crepitus CVS: Normal heart rate and rhythm. Pulses normal. Normal S1 and S2 Respiratory: No respiratory distress. Breath sounds normal. No Wheezing. No rales Abdomen: Soft and nontender. No rigidity. No distention. good BS x4 Skin: Skin warm and dry. Normal skin color. Normal skin turgor. Extremities: No lower extremity edema. Neurovascular intact to all extremities. No Lacerations. No Rash Neuro: Oriented X 3. No motor deficit. No sensory deficit. Moving all extermities. No slurred speech Vital Signs: Vital Signs - 24 hr 04/28/25 21:40 04/28/25 23:24 Temperature 98.0 F 98.2 F Pulse Rate 56 82 Respiratory Rate 16 18 Blood Pressure 150/97 H 145/88 H Pulse Oximetry 99 99 Oxygen Delivery Method Room Air Room Air BMI result Body Mass Index 34.2 Medical Decision Making Medical Decision Making [facility] Narrative: my interpretation patient's EKG showed a sinus rhythm heart rate is 60 TX QRS QTC within normal limits there is no acute ST segment elevation. Patient's has a kidney stone noted on the previous CAT scan done 3 days prior at the [facility]. White count is normal today. Patient's electrolytes are normal. Hospital because patient had chest tightness shortness of breath is 1 troponin was done was negative. Patient's test is negative COVID flu RSV were all negative after fluids pain medication patient is sleeping. Explained to patient need for follow-up with urology on an outpatient basis. Likely this is related to kidney stone. Differential Diagnosis Differential Diagnoses: The differential diagnosis associated with the presentation includes kidney stone, vasovagal episode, dehydration, biliary disease Admission/Observation Consideration of admission/observation: Escalation of care including admission/observation considered Lab Data [facility] Lab Attestation statement: I reviewed the patient's lab results. 04/28/25 22:04 04/28/25 22:04 Labs: Lab Results 04/28/25 04/28/25 Range/Units 22:04 22:40 WBC 9.7 (4.8-10.8) X10*3/uL RBC 4.77 (4.20-5.50) X10*6/uL Hgb 13.3 (12.0-16.0) g/dl Hct 40.6 (37.0-47.0) % MCV 85.1 (80.0-98.0) fL MCH 27.9 (27.0-33.0) pg MCHC 32.8 (31.0-35.0) g/dl RDW 13.2 (11.0-16.0) % Plt Count 272 (160-400) X10*3/uL MPV 10.4 (9.4-12.3) fL Immature Gran % (Auto) 0.2 (0.0-0.4) % Neut % (Auto) 68.1 (45-73) % Lymph % (Auto) 23.8 (20-40) % [place] % (Auto) 5.2 (2-11) % Eos % (Auto) 2.0 (0-4) % Baso % (Auto) 0.7 (0-2) % Lymph # (Auto) 2.3 (1.2-4.9) X10*3/uL [place] # (Auto) 0.5 (0.1-1.2) X10*3/uL Eos # (Auto) 0.2 (0.0-0.4) X10*3/uL Baso # (Auto) 0.1 (0.0-0.2) X10*3/uL Abs Immat Gran (auto) 0.02 (0.00-0.03) X10*3/uL Absolute Neuts (auto) 6.6 (2.0-8.3) x10*3/uL Absolute Nucleated RBC 0.000 (0.0-0.012) X10*3/uL Nucleated RBC % (auto) 0.0 (0.0-0.2) /100WBC Sodium 142 (135-145) mmol/L Potassium 3.8 (3.3-5.1) mmol/L Chloride 108 (96-108) mmol/L Carbon Dioxide 27 (22-29) mmol/L Anion Gap 11 L (12-20) BUN 9 (9-16) mg/dL Creatinine 0.77 (0.5-1.4) mg/dL Estim Creat Clear Calc 127.8 Estimated GFR > 60 Random Glucose 125 H (60-115) mg/dL Calcium 9.3 (8.4-10.2) mg/dL Total Bilirubin 0.3 (0.0-1.0) mg/dL AST 21 (5-31) U/L ALT 20 (0-31) U/L Alkaline Phosphatase 58 (39-117) U/L Troponin I High Sens < 2.7 (<3.5-17.0) ng/L Total Protein 7.2 (6.5-8.0) g/dL Albumin 4.5 (3.5-5.0) g/dL Lipase 22 (8-78) U/L Beta HCG, Quant < 2 mIU/mL COVID-19 (LICHA) Negative (Negative) COVID-19 Clin Com See Note Influenza Type A (SHAHEEN) Negative (Negative) Influenza Type B (SHAHEEN) Negative (Negative) Influenza A & B Note See Note Independent Interpretation I performed an independent interpretation of an: EKG ( sinus heart rate is 60 TX QRS QTC normal no acute ST segment elevation) Independent Historian Clinical information obtained from an independent historian. History obtained from or confirmed by: Parent External Record Review CT scan from 5 days ago reviewed Chronic Conditions history of kidney stone Social Determinants Patient?s care significantly limited by Social Determinants of Health including: Problems related to primary support group Medications Administered Discontinued Medications Generic Name Dose Route Start Last Admin Trade Name Freq PRN Reason Stop Dose Admin Al Hydroxide/Mg Hydroxide 30 ml 04/28/25 23:28 04/28/25 23:40 Magnesium Hydrox/Alum Hydrox 30 Ml Oral.Susp PO 04/28/25 23:29 30 ml ONCE ONE Administration Sodium Chloride 1,000 mls @ 999 mls/hr 04/28/25 23:30 04/28/25 23:41 Ns IV 04/29/25 00:30 999 mls/hr .Q1H1M MARIANNE Administration Ketorolac Tromethamine 15 mg 04/28/25 23:28 04/28/25 23:40 Ketorolac Tromethamine 15 Mg/Ml Vial IVPUSH 04/28/25 23:29 15 mg ONCE ONE Administration Ondansetron HCl 4 mg 04/28/25 23:28 04/28/25 23:40 Ondansetron Hcl 4 Mg/2 Ml Vial IVPUSH 04/28/25 23:29 4 mg ONCE ONE Administration Discharge Plan Discharge Clinical Impression: Kidney stone Patient Disposition: Home, Self-Care Instructions: Kidney Stones (ED) Prescriptions: No Action metoclopramide HCl [Reglan] 10 mg tablet 10 mg PO Q6H PRN (Reason: nausea and vomiting) Qty: 12 0RF sucralfate [Carafate] 1 gram tablet 1 g PO BID PRN (Reason: indigestion) Qty: 10 0RF sucralfate 1 gram tablet 1 g PO QID PRN (Reason: dyspepsia) Qty: 12 0RF cefpodoxime 200 mg tablet 200 mg PO BID Qty: 20 0RF Rx Instructions: must administer with a meal/food omeprazole 40 mg capsule,delayed release(DR/EC) 40 mg PO DAILY Qty: 20 0RF naproxen 500 mg tablet 500 mg PO BID PRN (Reason: pain) 10 Days Qty: 20 0RF tamsulosin 0.4 mg capsule 0.4 mg PO DAILY 10 Days Qty: 10 0RF Referrals: Katerine Le MD [Primary Care Provider, Internal Medicine] - 05/01/25 Adi Weiss MD [Physician, Urology] - 05/01/25 Print Language: Azeri
[2025-04-28] MEDS: Magnesium Hydrox/Alum Hydrox 30 ML ORAL.SUSP PO (23:40)
--- OUTSIDE RECORDS SUMMARY | 2025-04-28 23:51 | XMS_ITS | Clinical Summary ---
Author Organization [facility] Address [address] [place] [address] Care Team Providers Care Photovoltaic Panel Installer Name Role Phone Katerine Le MD Primary Care Provider [phone] Allergies No known active allergies Medications Zepbound 7.5 mg/0.5 mL pen injector Inject 7.5 mg under the skin. 02/06/2025 Active Active Problems No known active problems Encounters Date Type Department Care Team Description 02/07/2025 4:30 PM EDT Consult [address] [address] Niki James PA Acute right-sided thoracic back pain (Primary Dx); Adolescent idiopathic scoliosis, unspecified spinal region; Adolescent idiopathic scoliosis of thoracic region 02/07/2025 4:15 PM EDT - 02/07/2025 11:59 PM EDT Hospital Encounter [address] [address] Adolescent idiopathic scoliosis, unspecified spinal region Discharge [...] Final Result from Last 3 Months Insurance [facility] Care Teams Photovoltaic Panel Installer Relationship Specialty Start Date End Date Katerine Le MD [address] [place] [id number] PCP - General Internal Medicine 01/25/25
--- OUTSIDE RECORDS SUMMARY | 2025-04-28 23:51 | XMS_ITS | Encounter Summary ---
Author Organization [facility] Address [address] [place] [address] Care Team Providers Care Pressure Tester Operator Name Role Phone Katerine Le MD Primary Care Provider [phone] Encounter Details Date Type Department Care Team (Late Contact Info) Description 04/09/2025 Results Follow-Up Obstetrics and Gynecology - [address] [phone] Ceci Sims, JUAN MANUEL [address] [place] [address] Social History Tobacco Use Types Packs/Day Years [...] 8:30 AM EST Nutrition Bariatric Surgery - [place] 175 [facility] [address] [place] [phone] Niki Campbell, RD 175 [facility] [address] [place] [address] 06/14/2025 10:50 AM EST Office Visit [facility] [address] [place] [phone] Irma Clark MD [address] [place] [address] [address] [place] [phone] 08/13/2025 11:45 AM EDT Office Visit Bariatric Surgery - [place] [address] [facility] [facility] [address] [place] [phone] Arnulfo Kelly MD [address] [place] [phone] 09/10/2025 3:00 PM EDT Office Visit Adult Medicine [facility] [address] [place] [phone] Katerine Le MD [address] [place], [place] documented as of this encounter Visit Diagnoses Not on filedocumented in this encounter Care Teams Pressure Tester Operator Relationship Specialty Start Date End Date Katerine Le MD [address] [place], [place] PCP - General 12/01/23 documented as of this encounter
--- OUTSIDE RECORDS SUMMARY | 2025-04-28 23:51 | XMS_ITS | Clinical Summary ---
Author Organization [address] Address [address] [place] [phone] Phone Care Team Providers Care Licensed Occupational Therapist Name Role Phone Katerine Le MD Primary [...] 3 Active pantoprazole (PROTONIX) 40 mg EC tabletIndication s:Gastroesophage al reflux disease, unspecified whether esophagitis present Take 1 tablet (40 mg total) by mouth 1 (one) time each day before breakfast. Do not crush, chew, or split. 30 each 2 5 06/24/19 26 Active medroxyPROGESTER one (PROVERA) 10 mg tabletIndication s:PCOS (polycystic ovarian syndrome) Take 1 tablet (10 mg total) by mouth 1 (one) time each day for 10 days. 30 tablet 3 5 Active tirzepatide, weight loss, (Zepbound) 2.5 mg/0.5 mL injectionIndicat ions:Class 1 obesity due to excess calories with body mass index (BMI) of 34.0 to 34.9 in adult, unspecified whether serious comorbidity present Inject 0.5 mL (2.5 mg total) under the skin every 7 (seven) days for 4 doses. 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 06/28 09/30 - not appreciated 02/01 - [...] Team Description 04/09/2025 Results Follow-Up Obstetrics and [address] [phone] Ceic Sims CNM 04/05/2025 4:15 PM EST Lab Draw Station - [address] PCOS (polycystic ovarian syndrome); Menstrual bleeding problem; Erythrocytosis; Hyperlipidemia, unspecified hyperlipidemia type 04/05/2025 3:30 PM EST Office Visit Obstetrics and Gynecology [address] [phone] Ceci Sims CNM PCOS (polycystic ovarian syndrome) (Primary Dx); Menstrual bleeding problem 03/26/2025 8:30 AM EST Office Visit Bariatric Surgery [address] [phone] Arnulfo Kelly MD Class 1 obesity due to excess calories with body mass index (BMI) of 34.0 to 34.9 in adult, unspecified whether serious comorbidity present (Primary Dx); Gastroesophageal reflux disease, unspecified whether esophagitis present 03/15/2025 Telephone Adult Medicine [address] [phone] Chyna Walls [place] 03/07/2025 Telephone Adult Medicine [address] [phone] Chyna Walls [place] 03/04/2025 Telephone Adult Medicine [address] [phone] Katerine Le MD 02/05/2025 2:00 PM EDT Nutrition Bariatric Surgery [address] [phone] Niki Campbell, AZAEL Class 2 obesity without serious comorbidity with body mass index (BMI) of 36.0 to 36.9 in adult, unspecified obesity type (Primary Dx) 02/05/2025 Telephone Bariatric Surgery - [place] 175 [facility] [address] [place] [address] Arnulfo Kelly MD from Last 3 Months Immunizations Immunization Administration Dates Next Due DTaP (Infanrix) 6wks to less than 7yo 2009 DTaP / Hib 11/14/2006 [id number] (Pentacel) 2mo to less than 5yo 2005,2005,2005 [id number] (Pediarix) 6 w ks to less than [...] than 19 yo 07/30/2022 Meningococcal MCV4P 10/13/2017 [facility] SARS-CoV-2 COVID-19, mRNA, LNP-S, preservative free 05/23/2021,12/27/2020 [...] 2017 DX:Scoliosis; CO MMENT: was diagnosed at [facility] Family History Medical History Relation Name Comments Other: Enlarged Heart Maternal Grandfather ?genetic Other: lactose intol Maternal Grandfather Alcohol/Drug Mother Breast cancer Mother's side Allergies Other 1 MATERNAL SIDE Asthma Other 2 MATERNAL SIDE Other cancer Other 3 MATERNAL SIDE Other: HEART Other 4 MATERNAL SIDE- Maternal great uncle -40s and maternal great aunt [place] -40s Other: PULMONARY Other 5 MATERNAL SI [...] 0 Growth Chart Information Age Height Weight [id number] th Percentile BMI Percentile Head Circum Head [...] (127 lb 12.8 oz) 96.72%* 2016 * [facility] (Girls, 2-20 Years) Last Filed Vital [...] 8:30 AM EST Nutrition Bariatric Surgery - [place] [address] [phone] Niki Campbell, RD [address] [phone] 06/14/2025 10:50 AM EST Office Visit [facility] - [facility] [address] [place] [phone] Irma Clark MD [address] [place] [address] [address] [place] [phone] 08/13/2025 11:45 AM EDT Office Visit Bariatric Surgery - [place] [address] [phone] Arnulfo Kelly MD [address] [place] [phone] 09/10/2025 3:00 PM EDT Office Visit Adult Medicine [address] [phone] Katerine Le MD [address] [place], [place] Health Maintenance Due Date Last Done Comments [...] 03/28/2008, 11/15/19 07 IPV Vaccines Completed 2009, /12/2005, 2005, Additional history exists MMR Vaccines Completed [...] - 200 mg/dL 04/05/2025 7:35 PM EST [facility] Triglycerides 76 0 - 150 mg/dL 04/05/2025 7:35 PM [facility] HDL 46 >=40 mg/dL 04/05/2025 7:35 PM [facility] LDL Calculated 58 0 - 100 mg/dL 04/05/2025 7:35 PM [facility] Comment:Estimated LDL Calcul ated using equation: Total cholesterol - HDL cholesterol - (Triglycerides/5) VLDL Cholesterol Jagdish 15.2 mg/dL 04/05/2025 7:35 PM [facility] Non HDL Chol. (LDL+VLDL) 73 <145 mg/dL 04/05/2025 7:35 PM [facility] Chol/HDL Ratio 2.6 0.0 - 4.4 04/05/2025 7:35 PM [facility] Blood Venous blood specimen / Unknown Venipuncture / Unknown 04/05/2025 4:17 PM EST 04/05/2025 4:17 PM EST us Katerine Le MD LAB BLOOD ORDERABLES Final Result [facility] [address] [place] [address], [place] [phone] * (ABNORMAL) CBC auto differential (04/05/2025 4:17 PM EST) WBC 9.9 4.8 - 10.8 K/mcL LAB HEMETOLOGY METHOD 04/05/2025 7:22 PM [facility] RBC 4.70 3.80 - 4.80 M/mcL LAB HEMETOLOGY METHOD 04/05/2025 7:22 PM [facility] Hemoglobin 13.1 11.5 - 16.0 g/dL LAB HEMETOLOGY METHOD 04/05/2025 7:22 PM [facility] Hematocrit 41.0 35.0 - 47.0 % LAB HEMETOLOGY METHOD 04/05/2025 7:22 PM [facility] MCV 87.2 79.0 - 98.0 FL LAB HEMETOLOGY METHOD 04/05/2025 7:22 PM [facility] MCH 27.9 27.0 - 32.0 pcg LAB HEMETOLOGY METHOD 04/05/2025 7:22 PM [facility] MCHC 32.0 32.0 - 37.0 g/dL LAB HEMETOLOGY METHOD 04/05/2025 7:22 PM [facility] RDW 13.2 11.0 - 15.0 % LAB HEMETOLOGY METHOD 04/05/2025 7:22 PM [facility] Platelets 270 130 - 400 K/mcL LAB HEMETOLOGY METHOD 04/05/2025 7:22 PM [facility] MPV 11.5(H) 7.0 - 11.0 FL LAB HEMETOLOGY METHOD 04/05/2025 7:22 PM [facility] NRBC 0.0 <1.0 % LAB HEMETOLOGY METHOD 04/05/2025 7:22 PM [facility] NRBC Absolute 0.00 <0.10 K/mcL LAB HEMETOLOGY METHOD 04/05/2025 7:22 PM [facility] Neutrophils Relative 68.7 % LAB HEMETOLOGY METHOD 04/05/2025 7:22 PM [facility] Lymphocytes Relative 23.1 % LAB HEMETOLOGY METHOD 04/05/2025 7:22 PM [facility] Monocytes Relative 6.4 % LAB HEMETOLOGY METHOD 04/05/2025 7:22 PM [facility] Eosinophils Relative 1.2 % LAB HEMETOLOGY METHOD 04/05/2025 7:22 PM [facility] Basophils Relative 0.4 % LAB HEMETOLOGY METHOD 04/05/2025 7:22 PM EST [facility] Immature Granulocytes Relative 0.2 % LAB HEMETOLOGY METHOD 04/05/2025 7:22 PM EST [facility] Neutrophils Absolute 6.78 1.50 - 7.00 K/mcL LAB HEMETOLOGY METHOD 04/05/2025 7:22 PM [facility] Lymphocytes Absolute 2.28 1.00 - 5.00 K/mcL LAB HEMETOLOGY METHOD 04/05/2025 7:22 PM EST [facility] Monocytes Absolute 0.63 0.20 - 1.00 K/mcL LAB HEMETOLOGY METHOD 04/05/2025 7:22 PM EST [facility] Eosinophils Absolute 0.12 0.00 - 0.50 K/mcL LAB HEMETOLOGY METHOD 04/05/2025 7:22 PM [facility] Basophils Absolute 0.04 0.00 - 0.20 K/mcL LAB HEMETOLOGY METHOD 04/05/2025 7:22 PM EST [facility] Immature Granulocytes Absolute 0.02 0.00 - 0.03 K/mcL LAB HEMETOLOGY METHOD 04/05/2025 7:22 PM EST [facility] Blood Venous blood specimen / Unknown Venipuncture / Unknown 04/05/2025 4:17 PM EST 04/05/2025 4:17 PM EST us Katerine Le MD LAB BLOOD ORDERABLES Final Result [facility] [address] [place] [address], * Trichomonas vaginalis antigen (04/05/2025 4:00 PM EST) Trichomonas vaginalis Negative Negative 04/05/2025 8:50 PM EST [facility] Swab Vaginal structure / Unknown Non-blood Collection / Unknown 04/05/2025 4:00 PM EST 04/05/2025 4:00 PM EST us Ceci ZAMBRANO LAB MICROBIOLOGY - GENERAL ORDE RABLES Final Result [facility] [address] [place] [address], [place] [phone] * Chlamydia trachomatis and Neisseria gonorrhoeae molecular study (04/05/2025 4:00 PM EST) Pathologist [facility] Neisseria gonorrhoeae PCR Negative Negative LAB MOLECULAR DIAGNOSTICS METHOD 04/06/2025 9:26 AM EST [facility] Chlamydia trachomatis PCR Negative Negative LAB MOLECULAR DIAGNOSTICS METHOD 04/06/2025 9:26 AM EST [facility] Swab Cervix uteri structure / Unknown Non-blood Collection / Unknown 04/05/2025 4:00 PM EST 04/05/2025 4:00 PM EST us Ceci ZAMBRANO LAB MICROBIOLOGY - GENERAL ORDE RABJUANITO Final Result [facility] [address] [place] [address], [place] [phone] * HIV 1,2 antibody, p24 antigen with reflex to differentiation (09/06/2024 9:41 AM EDT) [facility] HIV Combo AB/AG Negative Negative LAB CHEMISTRY METHOD 09/06/2024 3:19 PM EDT [facility] Blood Venous blood specimen / Unknown Venipuncture / Unknown 09/06/2024 9:41 AM EDT 09/06/2024 9:41 AM EDT Narrative [facility] - 09/06/2024 3:19 PM EDT [...] Le MD LAB BLOOD ORDERABLES Final Result [facility] [address] [place] [address], [place] [phone] * Hepatitis panel, acute with reflex to confirmation (09/06/2024 9:41 AM EDT) [facility] Hepatitis B Surface Ag Negative Negative LAB CHEMISTRY METHOD 09/06/2024 3:20 PM EDT [facility] Hepatitis A Antibody IgM Negative Negative LAB CHEMISTRY METHOD 09/06/2024 3:20 PM EDT [facility] Hep B Core IgM Negative Negative LAB CHEMISTRY METHOD 09/06/2024 3:20 PM EDT [facility] Hepatitis C Antibody Negative Negative LAB CHEMISTRY METHOD 09/06/2024 3:20 PM EDT [facility] Blood Venous blood specimen / Unknown Venipuncture / Unknown 09/06/2024 9:41 AM EDT 09/06/2024 9:41 AM EDT Katerine Le MD LAB BLOOD ORDERABLES Final Result Performing Organization Address [facility]/ZIP Co de Phone Number [facility] [address] [place] [address], [place] [phone] * Depression Screening (08/03/2023) [facility] Depression Screening abstracted Historical Provider HEALTH MAINTENANCE Final Result from Last 3 Months or Most Recently Relevant to Health Maintenance Insurance [facility] [place] [address] Care Teams Licensed Occupational Therapist Relationship Specialty Start Date End Date Katerine Le MD [address] [place] [phone] PCP - General 12/01/23
[2025-04-29 01:54] VITALS: BP 128/79; PULSE 81; RESP 16; TEMP 36.7; O2SAT 98
[2025-04-29 02:00] VITALS: BP 128/79; PULSE 81; RESP 16; TEMP 36.7; O2SAT 98
== END 2025-04-29 02:01 | disposition home or self-care (01) ==
PROVIDERS: Emergency Provider Emergency Medicine Emergency Medical Services; PCP Internal Medicine
DX: N20.0 Calculus of kidney (principal); R10.9 Unspecified abdominal pain; Z03.818 Encounter for observation for suspected exposure to other biological agents ruled out; R07.9 Chest pain, unspecified; R00.1 Bradycardia, unspecified
CPT/HCPCS: 36415; 80053; 83690; 84484; 84702; 85025; 87502; 87635; 93005; 96361; 96374; 96375; 99284; 99285; J1885; J2405

== ENCOUNTER → 2025-04-28 21:28 | Outpatient (BNV) | payer OTHER, SELFPAY | PROVIDERS: Emergency Provider Emergency Medicine Emergency Medical Services; PCP Internal Medicine; Visit Provider Internal Medicine Cardiovascular Disease | DX: R00.1 Bradycardia, unspecified (principal) | CPT/HCPCS: 93010 ==